=== PATIENT | male | born 1935 | race Two or more races ===

== ENCOUNTER 2017-04-24 00:05 | Observation (INO) | payer MEDICARE ==
[2017-04-24] MEDS ORDERED: NS 0.9% 1000 ML* 1,000 ML IV ONE (01:08)
[2017-04-24] MEDS ORDERED: methylPREDNISolone 125 MG* 2 ML VIAL IV ONE (01:08)
[2017-04-24] MEDS ORDERED: Albuterol/Ipratropium NEB.SOL* Albuterol 2.5 MG/Ipratropium 0.5 MG 3 ML INH ONE (01:11)
[2017-04-24 01:52] LABS: ABS Basophils 0 10^3/ul (0-0.2); ABS Eosinophils 0.1 10^3/ul (0-0.6); ABS Lymphocytes 0.7 10^3/ul (1.0-4.8); ABS Monocytes 0.7 10^3/ul (0-0.8); ABS Neutrophils 5.6 10^3/ul (1.5-7.7); ABS Nucleated RBC 0 10^3/ul; Eosinophil % 1.7 % (0-6); Hematocrit 39 % (42-52); Hemoglobin 12.9 g/dl (14.0-18.0); Lymphocyte % 9.7 % (25-47); Mean Corpuscular HGB Conc 33 g/dl (31-36); Mean Corpuscular Hemoglobin 30 pg (27-31); Mean Corpuscular Volume 90 fL (80-94); Mean Platelet Volume 8 um3 (7.4-10.4); Nucleated Red Blood Cells % 0; Platelet Count 166 10^3/ul (150-450); Red Blood Count 4.35 10^6/ul (4.0-5.4); Red Cell Distribution Width 14 % (10.5-15); White Blood Count 7.2 10^3/ul (3.5-10.8)
[2017-04-24 02:09] LABS: EGFR Non-African American 89.1 (>60)
[2017-04-24] MEDS ORDERED: Levofloxacin 750 MG IVPREMIX(* 750 MG/150 ML BAG IVPB ONE (02:47)
[2017-04-24] MEDS ORDERED: GuaiFENesin DM* 5 ML UDC PO PRN (03:46)
[2017-04-24] MEDS ORDERED: Albuterol 2.5 MG/3 ML NEB.SOL* (0.083%) INH PRN (03:49)
[2017-04-24] MEDS ORDERED: Ondansetron INJ* 2 MG/ML VIAL IV PRN (03:49)
[2017-04-24] MEDS ORDERED: Acetaminophen TAB* 325 MG PO PRN (03:49)
[2017-04-24] MEDS: NS 0.9% 1000 ML* 1,000 ML IV SCH ×2 (05:15→16:02)
--- NOTE | 2017-04-24 06:30 | ED ---
Allen Marques Angela, scribed for Herman High MD on 04/24/17 at 0048 . Shortness of Breath - HPI Summary HPI Summary: This pt is a 81 y/o male presenting to [facility] via EMS c/o SOB. Pt reports he has been coughing and wheezing for a couple of weeks now. Pt states he went to take a shower and after coming out of his shower he felt suddenly SOB, described like his "nose began to plug up." He denies chest pain, fever, sore throat. Pt went to see his PCP yesterday and was diagnosed with bronchitis. He was given a cough suppressant. Pt is currently on prostate medicine and GERD medication. He is a former smoker. - History of Current Complaint Chief Complaint: EDShortnessOfBreath Time Seen by Provider: 04/24/17 00:40 Hx Obtained From: Patient Onset/Duration: Lasting Days, Still Present Timing: Constant Dyspnea At: Rest Associated Signs & Symptoms: Cough (Nonproductive), Wheezing - Allergy/Home Medications Allergies/Adverse Reactions: Allergies Allergy/AdvReac Type Severity Reaction Status Date / Time Codeine Allergy Headache Verified 10/16/16 08:50 Home Medications: Home Medications Benzonatate [Benzonatate 200 MG] 200 mg PO TID PRN 04/24/17 [History Confirmed 04/24/17] Esomeprazole Magnesium [Nexium 24Hr] 20 mg PO DAILY 04/24/17 [History Confirmed 04/24/17] Finasteride [Proscar] 5 mg PO DAILY 04/24/17 [History Confirmed 04/24/17] Multiple Vitamins W/ Minerals [Preservision Areds 2 + Mu] 1 cap PO DAILY [History Confirmed 04/24/17] Phenylephrine 0.5% NASAL* [Ervin-Synephrine 0.5% Nasal*] 1 spray BOTH NARES Q4H PRN 04/24/17 [History Confirmed 04/24/17] PMH/Surg Hx/FS Hx/Imm Hx Endocrine/Hematology History: Denies: Hx Diabetes Cardiovascular History: Denies: Hx Hypertension GI History: Reports: Hx Gastroesophageal Reflux Disease History: Reports: Hx Benign Prostatic Hyperplasia Denies: Hx Dialysis, Hx Renal Disease Infectious Disease History: Denies: Traveled Outside the [place] in Last 30 Days - Family History Known Family History: Positive: Other - Father: [place] - Social History Alcohol Use: None Substance Use Type: Reports: None Smoking Status (MU): Former Smoker Review of Systems Negative: Fever, Chills Negative: Sore Throat Negative: Chest Pain Respiratory: Other - wheezing Positive: Shortness Of Breath, Cough All Other Systems Reviewed And Are Negative: Yes Physical Exam - Summary Physical Exam Summary: Appearance: Well appearing, no pain distress Skin: warm, dry, reflects adequate perfusion Head/face: normal Eyes: EOMI, KEMI ENT: Pharynx is normal. Scant nasal discharge. Neck: supple, non-tender Respiratory: Diffuse wheezing, prolonged expiratory phase. Crackles in the left base. Cardiovascular: tachycardic but regular, pulses symmetrical. Some peripheral edema. Abdomen: non-tender, soft. Soft umbilical hernia. Bowel: present Musculoskeletal: strength/ROM intact. 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 Some peripheral edema. Neuro: normal, sensory motor intact, A&Ox3 Triage Information Reviewed: Yes Vital Signs On Initial Exam: Initial Vitals Temp Pulse Resp BP Pulse Ox 99.3 F 112 20 140/82 97 04/24/17 00:15 04/24/17 00:15 04/24/17 00:15 04/24/17 00:15 04/24/17 00:15 Vital Signs Reviewed: Yes Diagnostics - Vital Signs Vital Signs Temp Pulse Resp BP Pulse Ox 04/24/17 03:30 17 144/84 04/24/17 03:18 19 121/82 04/24/17 03:00 17 04/24/17 02:04 19 04/24/17 01:30 133/72 04/24/17 01:00 98 18 96 04/24/17 00:15 37.4 C 114 20 140/82 97 - Laboratory Lab Results: Lab Results 04/24/17 04/24/17 04/24/17 Range/Units 01:26 01:30 01:30 WBC (3.5-10.8) 10^3/ul RBC (4.0-5.4) 10^6/ul Hgb (14.0-18.0) g/dl Hct (42-52) % MCV (80-94) fL MCH (27-31) pg MCHC (31-36) g/dl RDW (10.5-15) % Plt Count (150-450) 10^3/ul MPV (7.4-10.4) um3 Neut % (Auto) (38-83) % Lymph % (Auto) (25-47) % [place] % (Auto) (1-9) % Eos % (Auto) (0-6) % Baso % (Auto) (0-2) % Absolute Neuts (auto) (1.5-7.7) 10^3/ul Absolute Lymphs (auto) (1.0-4.8) 10^3/ul Absolute Monos (auto) (0-0.8) 10^3/ul Absolute Eos (auto) (0-0.6) 10^3/ul Absolute Basos (auto) (0-0.2) 10^3/ul Absolute Nucleated RBC 10^3/ul Nucleated RBC % Patient Temperature ABG pH (7.35-7.45) ABG pH (Temp Correct) ABG pCO2 (35-45) mmHg ABG pCO2 (Temp Corrct ABG pO2 (80-100) mmHg ABG pO2 (Temp Correct ABG HCO3 (19-31) mmol/L ABG O2 Saturation (95-98) % ABG Base Excess (-2.0-2.0) Respiration Rate O2 Delivery Device Ventilator Type Vent Mode FiO2 Inspiratory Time PEEP Pressure Support Pressure Control EPAP IPAP BiPAP Sodium 139 (133-145) mmol/L Potassium 3.9 (3.5-5.0) mmol/L Chloride 107 (101-111) mmol/L Carbon Dioxide 26 (22-32) mmol/L Anion Gap 6 (2-11) mmol/L BUN 20 (6-24) mg/dL Creatinine 0.83 (0.67-1.17) mg/dL Est GFR ( Amer) 114.6 (>60) Est GFR (Non-Af Amer) 89.1 (>60) BUN/Creatinine Ratio 24.1 H (8-20) Glucose 114 H (70-100) mg/dL Lactic Acid (0.5-2.0) mmol/L Calcium 8.8 (8.6-10.3) mg/dL Total Bilirubin 0.30 (0.2-1.0) mg/dL AST 15 (13-39) U/L ALT 12 (7-52) U/L Alkaline Phosphatase 75 (34-104) U/L Troponin I 0.01 (<0.04) ng/mL C-Reactive Protein 8.81 H (< 5.00) mg/L B-Natriuretic Peptide 24 ( - 100) pg/mL Total Protein 6.2 L (6.4-8.9) g/dL Albumin 3.5 (3.2-5.2) g/dL Globulin 2.7 (2-4) g/dL Albumin/Globulin Ratio 1.3 (1-3) Influenza A (Rapid) Negative (Negative) Influenza B (Rapid) Negative (Negative) 04/24/17 04/24/17 04/24/17 Range/Units 01:30 01:30 02:05 WBC 7.2 (3.5-10.8) 10^3/ul RBC 4.35 (4.0-5.4) 10^6/ul Hgb 12.9 L (14.0-18.0) g/dl Hct 39 L (42-52) % MCV 90 (80-94) fL MCH 30 (27-31) pg MCHC 33 (31-36) g/dl RDW 14 (10.5-15) % Plt Count 166 (150-450) 10^3/ul MPV 8 (7.4-10.4) um3 Neut % (Auto) 78.5 (38-83) % Lymph % (Auto) 9.7 L (25-47) % [place] % (Auto) 9.7 H (1-9) % Eos % (Auto) 1.7 (0-6) % Baso % (Auto) 0.4 (0-2) % Absolute Neuts (auto) 5.6 (1.5-7.7) 10^3/ul Absolute Lymphs (auto) 0.7 L (1.0-4.8) 10^3/ul Absolute Monos (auto) 0.7 (0-0.8) 10^3/ul Absolute Eos (auto) 0.1 (0-0.6) 10^3/ul Absolute Basos (auto) 0 (0-0.2) 10^3/ul Absolute Nucleated RBC 0 10^3/ul Nucleated RBC % 0 Patient Temperature Not Reportable ABG pH 7.40 (7.35-7.45) ABG pH (Temp Correct) Not Reportable ABG pCO2 35 (35-45) mmHg ABG pCO2 (Temp Corrct Not Reportable ABG pO2 114 H (80-100) mmHg ABG pO2 (Temp Correct Not Reportable ABG HCO3 23.0 (19-31) mmol/L ABG O2 Saturation 99.6 H (95-98) % ABG Base Excess -2.5 L (-2.0-2.0) Respiration Rate Not Reportable O2 Delivery Device nasal cannula Ventilator Type Not Reportable Vent Mode Not Reportable FiO2 33 Inspiratory Time Not Reportable PEEP Not Reportable Pressure Support Not Reportable Pressure Control Not Reportable EPAP Not Reportable IPAP Not Reportable BiPAP Not Reportable Sodium (133-145) mmol/L Potassium (3.5-5.0) mmol/L Chloride (101-111) mmol/L Carbon Dioxide (22-32) mmol/L Anion Gap (2-11) mmol/L BUN (6-24) mg/dL Creatinine (0.67-1.17) mg/dL Est GFR ( Amer) (>60) Est GFR (Non-Af Amer) (>60) BUN/Creatinine Ratio (8-20) Glucose (70-100) mg/dL Lactic Acid 1.5 (0.5-2.0) mmol/L Calcium (8.6-10.3) mg/dL Total Bilirubin (0.2-1.0) mg/dL AST (13-39) U/L ALT (7-52) U/L Alkaline Phosphatase (34-104) U/L Troponin I (<0.04) ng/mL C-Reactive Protein (< 5.00) mg/L B-Natriuretic Peptide ( - 100) pg/mL Total Protein (6.4-8.9) g/dL Albumin (3.2-5.2) g/dL Globulin (2-4) g/dL Albumin/Globulin Ratio (1-3) Influenza A (Rapid) (Negative) Influenza B (Rapid) (Negative) Result Diagrams: 04/24/17 01:30 04/24/17 01:30 Lab Statement: Any lab studies that have been ordered have been reviewed, and results considered in the medical decision making process. - Radiology Chest XR Xray Interpretation: Positive (See Comments) - Increased perihilar markings with peribronchial cuffing. Left basilar infiltrate. Radiology Interpretation Completed By: ED Physician - EKG 01:24 Cardiac Rate: Tachycardia EKG Rhythm: Sinus Tachycardia - at [address] Segment: Non-Specific - possibly rate related EKG Interpretation: Normal axis. Right bundle branch block. Re-Evaluation - Re-Evaluation First Eval Re-Evaluation Time: 02:45 Comment: I discussed the XR results with the pt. Pt is feling a little better. He still has a harsh cough and is feeling weak. Pt is tachycardic. Course/Dx - Course Course Of Treatment: Pt with harsh cough, elevated HR and LLL infiltrate. Start IV antibiotics, fluids. Lactate not elevated. Improved min with breathing tx. Admit for further. - Diagnoses Differential Diagnosis/HQI/PQRI: Positive: Bronchitis, COPD Exacerbation, Other - pneumonia, flu Provider Diagnoses: Left lower lobe pneumonia, Sepsis - Physician Notifications Discussed Care of Patient With: Vin Brower Time Discussed With Above Provider: 02:50 Instructed by Provider To: Other - I discussed pt care with Dr. Brower, hospitalist, who has agreed to admit the pt. Discharge - Discharge Plan Condition: Guarded Disposition: ADMITTED TO [facility] documentation as recorded by the Allen hayes Angela accurately reflects the service I personally performed and the decisions made by me, Herman High MD.
--- NOTE | 2017-04-24 07:56 | RAD ---
INDICATION: Cough. Short of breath COMPARISON: None TECHNIQUE: PA and lateral dual-energy views were obtained. FINDINGS: Bones/Soft Tissues: There are no acute bony findings. Cardiomediastinal: The cardiomediastinal silhouette is normal. Lungs: There are no acute infiltrates. There is persistent linear change left lung base probably related to lingular scarring. There is mild hyperinflation. Pleura: There are no pleural effusions. Other: There is a small hiatal hernia with air-fluid level. IMPRESSION: MILD CHRONIC APPEARING LUNG FINDINGS. HIATAL HERNIA . NO ACTIVE DISEASE
[2017-04-24] MEDS: Omeprazole CAP* 20 MG PO SCH (09:01)
[2017-04-24] MEDS: Finasteride TAB* 5 MG PO SCH (09:01)
[2017-04-24] MEDS: Benzonatate CAP* 100 MG PO SCH ×3 (09:01→21:54)
--- NOTE | 2017-04-24 10:16 | PN ---
Subjective Date of Service: 04/24/17 Interval History: Mr. Denney reports he is feeling minimally better but continues to have a harsh cough that leaves him very short of breath and gasping for air. He denies other complaint including chest pain, nausea, or abdominal pain. Objective Active Medications: Acetaminophen (Tylenol Tab*) 650 mg PO Q4H PRN Albuterol (Ventolin 2.5 Mg/3 Ml Neb.Tamia*) 2.5 mg INH Q4H PRN Benzonatate (Tessalon Cap*) 100 mg PO TID IVIS Enoxaparin Sodium (Lovenox(*)) 40 mg SUBCUT Q24H IVIS Finasteride (Proscar Tab*) 5 mg PO DAILY IVIS Guaifenesin/Dextromethorphan (Robitussin Dm*) 10 ml PO Q4H PRN Levofloxacin/Dextrose (Levaquin 750 Mg Ivpremix(*)) 750 mg in 150 mls @ 100 mls /hr IVPB Q24H IVIS Sodium Chloride (Ns 0.9% 1000 Ml*) 1,000 mls @ 125 mls/hr IV PER RATE IVIS Omeprazole (Prilosec Cap*) 20 mg PO DAILY@0600 IVIS Ondansetron HCl (Zofran Inj*) 4 mg IV Q4H PRN Prednisone (Deltasone Tab*) 60 mg PO DAILY [facility] Vital Signs: Temp Pulse Resp BP Pulse Ox 98.8 F 106 20 154/79 98 04/24/17 08:14 04/24/17 08:14 04/24/17 08:14 04/24/17 08:14 04/24/17 08:14 Oxygen Devices in Use Now: None Appearance: Male lying in bed in NAD Eyes: No Scleral Icterus Ears/Nose/Mouth/Throat: Mucous Membranes Moist Neck: Trachea Midline Respiratory: Symmetrical Chest Expansion and Respiratory Effort, - - Diminished in left base Cardiovascular: NL Sounds; No Murmurs; No JVD, No Edema Abdominal: NL Sounds; No Tenderness; No Distention Extremities: No Edema Skin: No Rash or Ulcers Neurological: Alert and Oriented x 3, NL Muscle Strength and Tone Nutrition: Taking PO's Result Diagrams: 04/24/17 01:30 04/24/17 01:30 Additional Lab and Data: . Microbiology and Other Data: . Assess/Plan/Problems-Billing Assessment: Mr. Denney is an 81 yo male with no significant PMH who was admitted on 04/23/17 with pneumonia. - Patient Problems (1) Pneumonia Comment: - Minimal improvement. - Chest xray with left lower lobe pneumonia, not read per radiology, but I agree with Dr. Brower. - Continue levaquin. (2) GERD (gastroesophageal reflux disease) Comment: - Continue omeprazole. (3) DVT prophylaxis Comment: - Lovenox. (4) DNR (do not resuscitate) Comment: Status and Disposition: OBV. Anticipate discharge to home when medically stable.
--- NOTE | 2017-04-24 10:23 | HP ---
CC: Dr. Devries * ADMISSION HISTORY AND PHYSICAL: DATE OF ADMISSION: 04/24/17 PRIMARY CARE PROVIDER: Dr. Devries. HEALTHCARE PROXY: . CODE STATUS: DNR. Discussed with the patient and his . MOLST form completed and placed on the chart. SOURCE OF INFORMATION: History obtained from interview with the patient and his . RELIABILITY: Fair. CHIEF COMPLAINT: Shortness of breath with cough. HISTORY OF PRESENT ILLNESS: This is an 81-year-old man with a past medical history of BPH and GERD as well as a remote history of pneumonia, who has had cough for the last 3 weeks associated with "hard breathing," which is difficult to characterize, but notice it has been more difficult to walk to his car for the last 3 weeks, not associated with fever, chills, night sweats, or shaking rigors. He has had decreased appetite, but no fatigue. Noted that the cough had been worsening over the last 3 to 4 days and again without associated fevers or chills, but was associated with headache, which is chronic for which he takes Excedrin. He presented to Dr. Devries, who diagnosed him with bronchitis, gave him Tessalon Perles to start for his cough; however, he had not yet started taking them. Today, after taking the shower, he had a paroxysm of coughing with worsening shortness of breath, presented to the emergency room. Of note, his son has also had a cough recently and his has recently started to cough for the last 1 or 2 days. The patient additionally notes associated rhinorrhea, but no sore throat or sinus congestion. No other travel or sick contacts. PAST MEDICAL HISTORY: Includes BPH; GERD; history of pneumonia; cataracts bilaterally removed; hernia in 1999, repaired. MEDICATIONS: Include: 1. Finasteride. 2. Nexium. ALLERGIES: To CODEINE, which causes headache. FAMILY HISTORY: Positive for father with stomach cancer, otherwise negative for CAD, hypertension, hyperlipidemia, and diabetes. SOCIAL HISTORY: Alcohol, drinks about 12 beers per week. Tobacco, quit in 1962 , smoked for 5 years, less than 1 pack per day. 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 Denies exposure to toxic chemicals except for the adhesives, which he notes was water based. REVIEW OF SYSTEMS: As per HPI. Otherwise, all other systems negative. PHYSICAL EXAMINATION GENERAL: Stated age, sitting up in bed, coughing persistently throughout the entire exam. Talks comfortably in full sentences. VITAL SIGNS: When seen by this author, 121/82; heart rate is 113; respiratory rate is 16; he is 96% on 3 L nasal cannula; T-max in the emergency room was 99.3. HEENT: Oropharynx is clear. He has moist mucous membranes. Sclerae are anicteric. NECK: He has non-elevated JVD. Has no cervical or supraclavicular lymphadenopathy. LUNGS: His lungs have rales in bilateral bases, worse in the left. He has wheezes throughout, prolonged expiratory phase. HEART: He is tachycardic without murmurs. ABDOMEN: Soft, with mild distention. Positive bowel sounds, nontender to palpation. EXTREMITIES: Warm and well-perfused without clubbing, cyanosis, or edema. NEUROLOGIC: He is alert and oriented x3. His cranial nerves II through XII are intact. He may have a very slight facial droop at the angle of his lip when smiling; however, slight on exam. He has no apparent anxiety, agitation, or depression. DIAGNOSTIC STUDIES/LAB DATA: Labs reviewed, notable for negative influenza. White blood cell count is 7.2, hemoglobin 12.9, MCV of 90, platelets 166. CRP is 8.8. Troponin I is 0.01, lactic acid is 1.5. Blood gas, arterial, pH 7.4, PCO2 35, PO2 114, unclear what FiO2 . Chest x-ray, interpreted by this author, is obscuration of left hemidiaphragm, potentially representing a left basilar consolidation. PA film formal interpretation pending in the morning. ASSESSMENT AND PLAN: This is an 81-year-old gentleman with 3 weeks of cough, worsening over the last 3 to 4 days, now associated with worsening shortness of breath, found with chest x-ray concerning for left lower lobe pneumonia. 1. Cough. Concern for pneumonia especially with increased shortness of breath and new oxygen demand. He is receiving Levaquin in the emergency room. Agree with continuing. Next dose will not be due until 4 a.m. tomorrow. Check Streptococcus pneumoniae, legionella urine antigen as well as sputum for culture. Normal saline at 125 cc per hour for 2 additional liters given tachycardia. Continue Tessalon caps as well as guaifenesin with dextromethorphan for cough suppression, has received methylprednisolone 125 mg in the emergency room on presentation at 1:20 a.m. ____ continue 60 mg of prednisone daily starting 04/25/17 at 9 a.m. secondary to diffuse wheeze and cough. While he does not carry a diagnosis of asthma, this certainly sounds like reactive airway disease, potentially in the setting of viral infection with potential superimposed small pneumonia. 2. Tachycardia in the setting of above, 2 L normal saline in addition to what he received in the emergency room. Attempt for additional comfort and relief from cough with cough suppressants. Unfortunately, he cannot tolerate CODEINE. 3. Benign prostatic hyperplasia. Continue finasteride. 4. Gastroesophageal reflux disease. We will give omeprazole while here. To continue Nexium on discharge. 5. DVT prophylaxis. Lovenox. 6. Code status. DNR as discussed above. [id number]/[facility] #: [id number] MTDD
[2017-04-24] MEDS: Enoxaparin(*) 40 MG/0.4 ML SYR SUBCUT SCH (12:06)
[2017-04-25] MEDS ORDERED: Levofloxacin 750 MG IVPREMIX(* 750 MG/150 ML BAG IVPB SCH (06:00)
[2017-04-25] MEDS: Omeprazole CAP* 20 MG PO SCH (06:04)
[2017-04-25 07:38] VITALS: BP 133/77
[2017-04-25] MEDS: Finasteride TAB* 5 MG PO SCH (08:01)
[2017-04-25] MEDS: Enoxaparin(*) 40 MG/0.4 ML SYR SUBCUT SCH (08:01)
[2017-04-25] MEDS: Benzonatate CAP* 100 MG PO SCH (08:01)
[2017-04-25] MEDS ORDERED: predniSONE TAB* 20 MG PO SCH (09:00)
--- NOTE | 2017-04-25 09:53 | PN ---
Progress Note - Progress Note Date of Service: 04/25/17 Note: Discharge Progress Note Primary diagnosis: left lower lobe pneumonia Secondary diagnoses: GERD BPH h/o inguinal hernia repair umbilical hernia Consultations: none Procedures: none Complications: none Pertinent lab/radiology testing: chest x-ray: chronic changes in L base, no clear infiltrate Microbiology 04/24/17 13:00 Sputum Gram Stain - Final 04/24/17 05:35 Urine Legionella Urinary Antigen - Final 04/24/17 05:35 Urine Streptococcus pneumoniae Ag Screen - Final Negative Legionella Negative S. pneumo Antigen Laboratory Tests 04/24/17 04/24/17 04/24/17 01:26 01:30 01:30 Hgb Hct MCV ABG pH ABG pCO2 ABG pO2 Glucose 114 H Lactic Acid C-Reactive Protein 8.81 H B-Natriuretic Peptide 24 Influenza A (Rapid) Negative Influenza B (Rapid) Negative 04/24/17 04/24/17 04/24/17 01:30 01:30 02:05 Hgb 12.9 L Hct 39 L MCV 90 ABG pH 7.40 ABG pCO2 35 ABG pO2 114 H Glucose Lactic Acid 1.5 C-Reactive Protein B-Natriuretic Peptide Influenza A (Rapid) Influenza B (Rapid) Tests pending on discharge: sputum culture Physical Exam: Selected Entries 04/25/17 03:36 Temperature 36.4 C Pulse Rate 95 Respiratory 18 Rate Blood Pressure 133/77 (mmHg) O2 Sat by Pulse 97 Oximetry Alert, no distress Not requiring O2 Lungs: rales LLL Heart: RRR, no murmur Abdo: soft, tender at umbilical hernia (reducible)
[2017-04-25] MEDS ORDERED: Levofloxacin TAB* 500 MG ONE (11:08)
[2017-04-26] MEDS ORDERED: Levofloxacin TAB* 500 MG PO SCH (06:00)
--- NOTE | 2017-04-26 21:32 | DS ---
CC: Dr. Devries * DISCHARGE SUMMARY: DATE OF ADMISSION: 04/24/17 DATE OF DISCHARGE: 04/25/17 PRIMARY DIAGNOSIS: Left lower lobe pneumonia. SECONDARY DIAGNOSES: 1. Gastroesophageal reflux disease. 2. Benign prostatic hypertrophy. 3. History of inguinal hernia repair. 4. Umbilical hernia present. MEDICATIONS ON DISCHARGE: 1. Levaquin 500 mg p.o. daily for 5 days. 2. Benzonatate 200 mg p.o. t.i.d. p.r.n. cough. 3. Nexium 20 mg p.o. daily. 4. Finasteride 5 mg p.o. daily. 5. Guaifenesin DM 10 mg p.o. q.4 hours p.r.n. cough. 6. Multivitamin 1 tab p.o. daily. HOSPITAL COURSE: The patient was admitted with severe coughing. He did not have a history of COPD or asthma. Chest x-ray showed chronic changes in left base. No clear infiltrate. However, physical exam shows rales in the left base and the patient was clinically diagnosed with pneumonia. His urine legionella antigen and urine pneumococcal antigen were negative. Sputum Gram stain was negative. Sputum culture is pending. The patient was treated empirically with IV Levaquin and responded well to this. The patient after admission was ready for discharge with ambulation to the bathroom without dyspnea, tolerating food well, cough is more manageable. Other pertinent tests during the hospital would show a blood gas with pH 7.4, pCO2 of 35, pO2 of 114. His lactic acid was 1.5. Influenza A and B were negative. C-reactive protein was 8.81. DISPOSITION: Home. ACTIVITY: As tolerated. DIET: Regular. FOLLOWUP: He should follow up with Dr. Devries within 1 week. [id number]/[facility] [place] #: [id number] [facility] CENTERAlexandra
== END 2017-04-25 11:10 | disposition home or self-care (01) ==
LOC: ED 00:05 → MEDTELE 03:49
PROVIDERS: ADMIT Internal Medicine; ATTEND Internal Medicine
DX: J18.9 Pneumonia, unspecified organism (principal); K21.9 Gastro-esophageal reflux disease without esophagitis; R05 Cough; R06.2 Wheezing; N40.1 Benign prostatic hyperplasia with lower urinary tract symptoms; Z98.890 Other specified postprocedural states; K42.9 Umbilical hernia without obstruction or gangrene
CPT/HCPCS: 36415; 36600; 71046; 80053; 82803; 83605; 83880; 84484; 85025; 86140; 87040; 87070; 87205; 87502; 87899; 93005; 94640; 96361; 96374; 99284; A9270-GY; G0378; J1650; J2930; J7512

== ENCOUNTER 2019-03-03 21:41 | Inpatient (IN) | payer MEDICARE ==
--- OUTSIDE RECORDS SUMMARY | 2019-03-03 21:58 | XMS REPORT | Continuity of Care Document ---
:1935 External Reference #:[id number] Author Name Ricci Shukla M.D. Address [address] [place] [address] Care Team Providers Name Role Phone Abdulkadir Bedoya M.D. - Urology Care Team Information Business Education Teacher [phone] Kennedy Burkett - Nurse Practitioner Care Team Information Business Education Teacher Problems Active Problems Provider Date Benign prostatic hyperplasia Ricci Shukla M.D. Onset: 10/23/2014 Gastroesophageal reflux disease Ricci Shukla M.D. Onset: 10/23/2014 Ocular hypertension Ricci Shukla M.D. Onset: 10/23/2014 Nonexudative age-related macular degeneration Ricci Shukla M.D. Onset: Pseudophakia Ricci Shukla M.D. Onset: 10/23/2014 Primary open-angle glaucoma, mild stage Ricci Shukla M.D. Onset: 2015 Bilateral primary open angle glaucoma Ricci Shukla M.D. 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 Onset: 06/19 degeneration Tear film insufficiency Ricci Shukla M.D. Onset: 09/11/2017 Presence of intraocular lens Ricci Shukla M.D. Onset: 01/31/2019 Parkinson's disease iRcci Shukla M.D. Onset: 01/31/2019 Social History Type Date Description Comments Sex Unknown ETOH Use Occasionally consumes alcohol Tobacco Use Start: Unknown Patient has never smoked Smoking Status Reviewed: 01/31/19 Patient has never smoked Allergies, Adverse Reactions, Alerts Active Allergies Reaction Severity Comments Date Codeine 12/18/2015 Medications Active Medications SIG Qnty Indications Ordering Provider Date Latanoprost instill 1 drop 10units H35.31 Kamlesh Peacock, 01/26/2015 0.005% in both eyes M.D. Solution every night Preservision Areds 2 1 cap by mouth Ricci Shukla, 10/22/2014 twice a day M.D. Areds 2 Capsules Finasteride Vorha, Abdulkadir 5mg Tablets M.D. Centrum Silver Unknown Tablets Nexium Unknown 20mg Capsules DR [place]ksdale Unknown 450mg Capsules Rivastigmine Tartrate bid Unknown 1.5mg Capsules Carbidopa-Levodopa Erasmo Glasgow NP 25-100mg Tablets Immunizations Description No Information Available Vital Signs Date Vital Result Comment 05/07/2015 2:48pm BP Systolic 134 mmHg BP Diastolic 86 mmHg Heart Rate 86 /min Respiratory Rate 16 /min 04/30/2015 3:16pm BP Systolic 142 mmHg BP Diastolic 88 mmHg Heart Rate 85 /min Respiratory Rate 16 /min Results Description No Information Available Procedures Description No Information Available Medical Devices Description No Information Available Encounters Description No Information Available Assessments Date Code Description Provider 01/31/2019 H40.1131 Primary open-angle glaucoma, bilateral, Ricci Shukla M.D. mild stage 01/31/2019 H35.3131 Nonexudative age-related macular Ricci Shukla M.D. degeneration, bilateral, ea 01/31/2019 Z96.1 Presence of intraocular lens Ricci Shukla M.D. 01/31/2019 G20 Parkinson's disease Ricci Shukla M.D. Plan of Treatment 01/31/2019 - Ricci Shukla M.D.H40.1131 Primary open-angle glaucoma, bilateral, mild stageComments:Smoking can increase the risk of developing or worsening any eye related disease, as well as affect your overall health. If you are a smoker, we strongly recommend that you quit.If you are not a smoker, we strongly recommend that you do not start. Your glaucoma is stable at this time.Your eye pressure is within an acceptable range, and your testing does not show any further deterioration at this time. Please continue your treatment.Follow up:6 Month Follow Up IOP Check At your next visit, we are not planning to dilate your eyes. However, if you have any changes in your vision or new symptoms, there are certain situations that require us to dilate your eyes. If Dr. Shukla requests any additional testing, that may require extra time. If you have any questions before your next appointment, please call our office at .[phone] Nonexudative age-related macular degeneration , bilateral, eaComments:You have Macular Degeneration. Check your Amsler Grid, with each eye separately, and take the AREDS II formula vitamins. If you notice any changes in your vision, please call the office and schedule anappointment to see any of the doctors here.Z96.1 Presence of intraocular lensComments:The artificial lens implants in both eyes appear to be stable at this time.G20 Parkinson's disease Functional Status Description No Information Available Mental Status Description No Information Available Referrals Description No Information Available
--- OUTSIDE RECORDS SUMMARY | 2019-03-03 21:58 | XMS REPORT | Continuity of Care Document ---
:1935 External Reference #:[id number] Author Name Quinten Glasgow N.P. (transmitted by agent of provider Josey Lam) Address [address] [place] [address], [place] [address] Care Team Providers Name Role Phone Kennedy Burkett ASSOCIATE PROFESSOR OF ENGINEERING - Internal Medicine Care Team Information Facility Environmental Technician Problems Active Problems Provider Date Amnesia Jose Fraire M.D. Onset: 04/29/2018 Abnormal involuntary movement Jose Fraire M.D. Onset: 04/29/2018 Benign prostatic hypertrophy without outflow Johan Devries M.D. Onset: obstruction Pure hypercholesterolemia Johan Devries M.D. Onset: 09/18/2015 Impaired fasting glycaemia Johan Devries M.D. Onset: 09/18/2015 Gastroesophageal reflux disease Johan Devries M.D. Onset: 09/18/2015 Social History Type Date Description Comments Sex Male ETOH Use Denies alcohol use Tobacco Use Start: Unknown End: Patient is a former Quit 1962; 1 Unknown smoker pack/week max, began age 18 Smoking Status Reviewed: 01/06/19 Patient is a former Quit 1963; 1 smoker pack/week max, began age 18 Exercise Exercises sporadically Type/Frequency Allergies, Adverse Reactions, Alerts Active Allergies Reaction Severity Comments Date Codeine headache 09/13/2014 Medications Active Medications SIG Qnty Indications Ordering Provider Date Carbidopa-Levodopa 1/2 pill three 90tabs Quinten Glasgow, 12/15/2018 times a day, 30 N.P. 25-100mg Tablets min prior to meals Rivastigmine Tartrate 1 capsule at bed 30caps R41.3 Quniten Glasgow, 11/05 time N.P. 4.5mg Capsules Rivastigmine Tartrate take 1 by mouth 30caps R25.1 Quinten Glasgow, 2018 in the morning N.P. 3mg Capsules Finasteride 1 by mouth every Unknown 5mg Tablets day Nexium uses prn Unknown 2.5mg Packet Preservision Areds 3 capsules once a Unknown day w/food Capsules Latanoprost 1 drop in both Unknown 0.005% eyes daily Solution Excedrin Migraine 2 tab by mouth Unknown daily as needed [id number] Tablets Immunizations CPT Code Status Date Vaccine Lot # [id number] Given 12/24/2018 Influenza Virus Vaccine, Quadrivalent, Split, Preservative Free 44851 Given 02/05/2018 Pneumococcal Conjugate Vaccine 13 Valent For Intramuscular Use 79542 Given 01/14/2018 Influenza Virus Vaccine, Quadrivalent, Split, Preservative Free 24597 Given 01/18/2016 Fluzone High Dose 77433 Given 09/13/2014 Pneumococcal Conjugate Vaccine 13 Valent For [id number] Intramuscular Use 64088 Given 02/13/2014 Influenza Virus 3Yrs & Over 34636 Given 12/10/2012 Influenza Virus 3Yrs & Over 64262 Given 10/23/2011 Zoster (Zostavax) 30706 Given 10/23/2011 Tdap - Tetanus/Diptheria/Acellular Pertussis 76693 Given 03/03/2009 Influenza Virus 3Yrs & Over 28548 Given 02/12/2008 Influenza Virus 3Yrs & Over 51229 Given 02/09/2007 Influenza Virus 3Yrs & Over 25628 Given 01/29/2006 Influenza Virus 3Yrs & Over 83263 Given 02/14/2002 Influenza Virus 3Yrs & Over Vital Signs Date Vital Result Comment 01/06/2019 10:13am Height 61 inches 5'1" Weight 159.00 lb Heart Rate 84 /min BP Systolic 136 mmHg BP Diastolic 84 mmHg BMI (Body Mass Index) 30.0 kg/m2 11/05/2018 10:21am Height 61 inches 5'1" Weight 159.00 lb Heart Rate 90 /min BP Systolic 112 mmHg BP Diastolic 82 mmHg BMI (Body Mass Index) 30.0 kg/m2 Results Description No Information Available Procedures Date Code Description Status 04/22/2007 56187437 Colonoscopy Completed Medical Devices Description No Information Available Encounters Type Date Location Provider Dx Diagnosis Office Visit 11/05/2018 [facility] Quinten Pee, R25.1 Tremor, unspecified 10:30a [facility] N.P. R41.3 Other amnesia R26.89 Other abnormalities of gait and mobility Office Visit 09/10/2018 [facility] Jose Fraire, R25.1 Tremor, 12:00p Neurologic M.D. unspecified [facility] R41.3 Other amnesia R26.89 Other abnormalities of gait and mobility Assessments Date Code Description Provider 01/06/2019 R41.3 Other amnesia Quinten Glasgow, N.P. 01/06/2019 R26.89 Other abnormalities of gait and mobility Quinten Glasgow, N.P. 01/06/2019 G20 Parkinson's disease Quinten Glasgow, N.P. 11/05/2018 R25.1 Tremor, unspecified Quinten Glasgow, N.P. 11/05/2018 R41.3 Other amnesia Quinten Glasgow, N.P. 11/05/2018 R26.89 Other abnormalities of gait and mobility Quinten Glasgow, N.P. 09/10/2018 R25.1 Tremor, unspecified Jose Fraire M.D. 09/10/2018 R41.3 Other amnesia Jose Fraire M.D. 09/10/2018 R26.89 Other abnormalities of gait and mobility Jose Fraire M.D. Plan of Treatment Future Appointment(s):02/14/2019 10:00 am - Quinten Glasgow, N.P. at [facility]01/06/2019 - Quinten Glasgow, N.P.R41.3 Other mztimuiI20.89 Other abnormalities of gait and omglpniiY16 Parkinson's diseaseFollow up:4 weeksRecommendations:check your blood pressure sitting and standing check you blood pressure when your lightheaded take the carbidopa levodopa on a empty stomach, and take it at consistent times during the day Functional Status Description No Information Available Mental Status Description No Information Available Referrals Description No Information Available
--- OUTSIDE RECORDS SUMMARY | 2019-03-03 21:58 | XMS REPORT | Continuity of Care Document ---
:1935 External Reference #:[id number] Author Name Quinten Glasgow N.P. (transmitted by agent of provider Riya Pruitt) Address [address] [place] [address], [place] [address] Care Team Providers Name Role Phone Kennedy Burkett NP - Internal Medicine Care Team Information Veterinary X Ray Operator Problems Active Problems Provider Date Gastroesophageal reflux disease Johan Devries M.D. Onset: 09/18/2015 Impaired fasting glycaemia Johan Devries M.D. Onset: 09/18/2015 Pure hypercholesterolemia Johan Devries M.D. Onset: 09/18/2015 Benign prostatic hypertrophy without outflow Johan Devries M.D. Onset: obstruction Abnormal involuntary movement Jose Fraire M.D. Onset: 04/29/2018 Amnesia Jose Fraire M.D. Onset: 04/29/2018 Social History Type Date Description Comments Sex Male ETOH Use Denies alcohol use Tobacco Use Start: Unknown End: Patient is a former Quit 1962; 1 Unknown smoker pack/week max, began age 18 Recreational Drug Use Denies Drug Use Smoking Status Reviewed: 02/14/19 Patient is a former Quit 1963; 1 smoker pack/week max, began age 18 Exercise Type/Frequency Exercises sporadically Allergies, Adverse Reactions, Alerts Active Allergies Reaction Severity Comments Date Codeine headache 09/13/2014 Medications Active Medications SIG Qnty Indications Ordering Date Provider Carbidopa-Levodopa 1 tablet in the am 60tabs R25.1 Quinten Glasgow, 2018 1/2 tab in N.P. 25-100mg Tablets afternoon 1/2 tab in the evening Rivastigmine Tartrate 1 capsule at bed 30caps R41.3 Quinten Glasgow, 11/05 time N.P. 4.5mg Capsules Rivastigmine Tartrate take 1 by mouth in 30caps R25.1 Quinten Glasgow, the morning N.P. 3mg Capsules Finasteride 1 by mouth every Unknown 5mg Tablets day Preservision Areds 3 capsules once a Unknown day w/food Capsules Latanoprost 1 drop in both Unknown 0.005% eyes daily Solution Excedrin Migraine 2 tab by mouth Unknown daily as needed [id number] Tablets History Medications Carbidopa-Levodopa 1 pill three 90tabs Quinten Glasgow, 12/15/2018 - 25-100mg Tablets times a day, N.P. 02/14/2019 30 min prior to meals Immunizations CPT Code Status Date Vaccine Lot # [id number] Given 12/24/2018 Influenza Virus Vaccine, Quadrivalent, Split, Preservative Free 15150 Given 02/05/2018 Pneumococcal Conjugate Vaccine 13 Valent For Intramuscular Use 28985 Given 01/14/2018 Influenza Virus Vaccine, Quadrivalent, Split, Preservative Free 83879 Given 01/18/2016 Fluzone High Dose 83540 Given 09/13/2014 Pneumococcal Conjugate Vaccine 13 Valent For [id number] Intramuscular Use 49502 Given 02/13/2014 Influenza Virus 3Yrs & Over 05290 Given 12/10/2012 Influenza Virus 3Yrs & Over 44029 Given 10/23/2011 Zoster (Zostavax) 25530 Given 10/23/2011 Tdap - Tetanus/Diptheria/Acellular Pertussis 31857 Given 03/03/2009 Influenza Virus 3Yrs & Over 15786 Given 02/12/2008 Influenza Virus 3Yrs & Over 75634 Given 02/09/2007 Influenza Virus 3Yrs & Over 35338 Given 01/29/2006 Influenza Virus 3Yrs & Over 02370 Given 02/14/2002 Influenza Virus 3Yrs & Over Vital Signs Date Vital Result Comment 02/14/2019 10:03am Height 61 inches 5'1" Weight 163.00 lb Heart Rate 112 /min BP Systolic 112 mmHg BP Diastolic 82 mmHg BMI (Body Mass Index) 30.8 kg/m2 01/06/2019 10:13am Height 61 inches 5'1" Weight 159.00 lb Heart Rate 84 /min BP Systolic 136 mmHg BP Diastolic 84 mmHg BMI (Body Mass Index) 30.0 kg/m2 Results Description No Information Available Procedures Date Code Description Status 04/22/2007 [id number] Colonoscopy Completed Medical Devices Description No Information Available Encounters Type Date Location Provider Dx Diagnosis Office Visit 01/06/2019 [facility] Quinten Glasgow, R41.3 Other amnesia 10:30a [facility] R26.89 Other abnormalities of gait and mobility R42 Dizziness and giddiness R25.1 Tremor, unspecified Office Visit 11/05/2018 10:30a [facility] Quinten R25.1 Tremor, [facility] Pee, N.P. unspecified R41.3 Other amnesia R26.89 Other abnormalities of gait and mobility Office Visit 09/10/2018 Deon Fraire R25.1 Tremor, 12:00p Neurologic MManuel unspecified [facility] R41.3 Other amnesia R26.89 Other abnormalities of gait and mobility Assessments Date Code Description Provider 02/14/2019 R41.3 Other amnesia Quinten Glasgow, N.P. 02/14/2019 R26.89 Other abnormalities of gait and mobility Quinten Glasgow, N.P. 02/14/2019 R25.1 Tremor, unspecified Quinten Glasgow, N.P. 01/06/2019 R41.3 Other amnesia Quinten Glasgow, N.P. 01/06/2019 R26.89 Other abnormalities of gait and mobility Quinten Glasgow, N.P. 01/06/2019 R42 Dizziness and giddiness Quinten Glasgow, N.P. 01/06/2019 R25.1 Tremor, unspecified Quinten Glasgow, N.P. 11/05/2018 R25.1 Tremor, unspecified Quinten Glasgow, N.P. 11/05/2018 R41.3 Other amnesia Quinten Glasgow, N.P. 11/05/2018 R26.89 Other abnormalities of gait and mobility Quinten Glasgow, N.P. 09/10/2018 R25.1 Tremor, unspecified Jose Fraire M.D. 09/10/2018 R41.3 Other amnesia Jose Fraire M.D. 09/10/2018 R26.89 Other abnormalities of gait and mobility Jose Fraire M.D. Plan of Treatment Future Appointment(s):05/30/2019 10:15 am - [facility]02/14/2019 - Quinten Glasgow N.P.R41.3 Other amnesiaFollow up:8 wofvbV27.89 Other abnormalities of gait and oidmrtwgU48.1 Tremor, unspecifiedNew Medication:Carbidopa-Levodopa 25-100 mg - 1 tablet in the am 1/2 tab in afternoon 1/2 tab in the evening Functional Status Description No Information Available Mental Status Description No Information Available Referrals Description No Information Available
--- NOTE | 2019-03-03 22:10 | ED ---
Lower Extremity - HPI Summary HPI Summary: 84-year-old male with significant past medical history of Parkinson's with dementia presents to the emergency department today after falling from standing due to slipping on ice at 2:00 PM and hurting his right hip. She states he has 5 out of 10 pain which is worse with walking and bearing weight. He states he is able to ambulate however it is very difficult. he denies syncope or loss of consciousness as a cause of fall. he denies fever, chest pain, abdominal pain, shortness of breath, rash, and urination. he denies any frequent urination yesterday. - History of Current Complaint Chief Complaint: EDHipPelvisInjury Stated Complaint: FALL INJ PER EMS Time Seen by Provider: 03/03/19 21:57 Hx Obtained From: Patient, Family/Halal Meat Packer - , daughter at the bed side Mechanism Of Injury: Fall From A Standing Position Onset of Pain: Hours Onset/Duration: Hours Severity Initially: Moderate Severity Currently: Mild Pain Intensity: 5 Pain Scale Used: 0-10 Numeric Timing: Constant Location: Is Discrete @ - right hip Character Of Pain: Aching Associated Signs And Symptoms: Negative: Swelling, Redness, Bruising, Fever Aggravating Factor(s): Standing, Ambulation Alleviating Factor(s): Rest Able to Bear Weight: No - Allergies/Home Medications Allergies/Adverse Reactions: Allergies Allergy/AdvReac Type Severity Reaction Status Date / Time codeine Allergy Headache Verified 03/04/19 00:21 Home Medications: Home Medications Carbidopa/Levodopa ER 25/100 [Carbidopa-Levo ER 25-100 Tab] 1 tab PO DAILY 03/03 [History Confirmed 03/03/19] Rivastigmine CAP(NF) [Exelon (NF)] 3 mg PO DAILY 03/03/19 [History Confirmed 08/15] Rivastigmine Tartrate [Rivastigmine] 4.5 mg PO DAILY 03/03/19 [History Confirmed 03/03/19] PMH/Surg Hx/FS Hx/Imm Hx Endocrine/Hematology History: Denies: Hx Diabetes Cardiovascular History: Denies: Hx Hypertension, Hx Pacemaker/ICD Respiratory History: Reports: Hx Pneumonia GI History: Reports: Hx Gastroesophageal Reflux Disease History: Reports: Hx Benign Prostatic Hyperplasia Denies: Hx Dialysis, Hx Renal Disease Sensory History: Reports: Hx Cataracts - Removed, Hx Contacts or Glasses Denies: Hx Hearing Aid Opthamlomology History: Reports: Hx Cataracts - Removed, Hx Contacts or Glasses Neurological History: Reports: Hx Migraine Psychiatric History: Denies: Hx Panic Disorder - Surgical History Surgery Procedure, Year, and Place: Cataracts removed,. Hernia repair. VASECTOMY Infectious Disease History: No Infectious Disease History: Denies: Traveled Outside the [place] in Last 30 Days - Family History Known Family History: Positive: Other - Father: [place] - Social History Alcohol Use: None Substance Use Type: Reports: None Smoking Status (MU): Former Smoker Review of Systems Constitutional: Negative Eyes: Negative ENT: Negative Cardiovascular: Negative Respiratory: Negative Gastrointestinal: Negative Genitourinary: Negative Positive: Arthralgia Skin: Negative Neurological: Negative Psychological: Normal All Other Systems Reviewed And Are Negative: Yes Physical Exam - Summary Physical Exam Summary: Edema with visualization. Right lower extremity is slightly shorter compared to the left. Patient has exquisite tenderness with palpation of the pelvis on the right side. Patient has extreme pain with movement of the right lower extremity. Dorsalis pedis pulse 2+ and he is neurovascularly intact in the right lower extremity. Triage Information Reviewed: Yes Vital Signs On Initial Exam: Initial Vitals Pulse Resp BP Pulse Ox 102 20 125/87 93 03/03/19 21:40 03/03/19 21:40 03/03/19 21:40 03/03/19 21:40 Vital Signs Reviewed: Yes Appearance: Positive: Well-Appearing, No Pain Distress, Well-Nourished Skin: Positive: Warm, Skin Color Reflects Adequate Perfusion Eyes: Positive: EOMI, KEMI ENT: Positive: Hearing grossly normal Respiratory/Lung Sounds: Positive: Clear to Auscultation, Breath Sounds Present Cardiovascular: Positive: RRR, S1, S2 Abdomen Description: Positive: Nontender, Soft Bowel Sounds: Positive: Present Musculoskeletal: Positive: Strength/ROM Intact Neurological: Positive: Sensory/Motor Intact, Alert, Oriented to Person Place, Time, Normal Gait, Facial Symmetry, Speech Normal Psychiatric: Positive: Normal AVPU Assessment: Alert Procedures - Sedation Patient Received Moderate/Deep Sedation with Procedure: No Diagnostics - Vital Signs Vital Signs Temp Pulse Resp BP Pulse Ox 03/03/19 21:42 97.3 F 99 16 125/87 94 03/03/19 21:40 102 20 125/87 93 - Laboratory Result Diagrams: 03/04/19 02:11 Lab Statement: Any lab studies that have been ordered have been reviewed, and results considered in the medical decision making process. Lower Extremity Course/Dx - Course Course Of Treatment: Patient was evaluated in the emergency department for right hip pain. She was seen and examined his vitals are stable. CT without contrast was ordered of the pelvis which revealed subcapital impaction fracture of the right femoral neck. No significant angulation. No significant hematoma. Orthopedics, Dr. Garcia was consulted at 1156 who suggested admission to the hospital through medical service. Hospitalist was consulted at 1158 for admission of the patient for evaluation in the morning by orthopedics. Patient was given 2 mg of morphine and 4 mg of Zofran for his pain. Admission was handled by hospitalist . Patient and family agreed with plan. - Diagnoses Differential Diagnosis/HQI/PQRI: Positive: Contusion, Fracture (Closed), Sprain , Strain Provider Diagnoses: Fracture of femoral neck, right - Physician Notifications Discussed Care Of Patient With: Carmen Garcia - admission for further evaluation in the morning. Admission to be handled by medical team. Time Discussed With Above Provider: 11:56 Instructed by Provider To: Admit As Inpatient Discharge ED - Sign-Out/Discharge Documenting (check all that apply): Patient Departure - Discharge Plan Condition: Stable Disposition: ADMITTED TO [facility] Referrals: Kennedy Burkett BALLISTIC TECHNICIAN [Primary Care Provider] - - Billing Disposition and Condition Condition: STABLE Disposition: Admitted to [facility] Consult Consult: Dr. Stockton with medical team was consulted for admission of the patient. Admission orders handled by hospitalist team.
[2019-03-03] MEDS ORDERED: Morphine INJ* 4 MG/ML 1 ML SYRINGE (NEW SYRINGE VERSION) IV PRN (23:54)
[2019-03-04] MEDS ORDERED: Ondansetron INJ* 2 MG/ML VIAL IV ONE (00:20)
[2019-03-04] MEDS: Morphine INJ* 2 MG/ML 1 ML SYRINGE (TWO MG - NEW SYRINGE VERSION) IV PRN ×4 (00:32→09:04)
[2019-03-04 01:59] LABS: Urine Appearance Clear; Urine Bilirubin Negative (Negative); Urine Blood Negative (Negative); Urine Color Yellow; Urine Glucose Negative (Negative); Urine Ketones Trace (Negative); Urine Nitrite Negative (Negative); Urine Protein Negative (Negative); Urine Specific Gravity 1.023 (1.010-1.030); Urine Urobilinogen Negative (Negative)
[2019-03-04 02:24] LABS: ABS Basophils 0.1 10^3/ul (0-0.2); ABS Eosinophils 0.3 10^3/ul (0-0.6); ABS Lymphocytes 0.8 10^3/ul (1.0-4.8); ABS Monocytes 0.8 10^3/ul (0-0.8); Eosinophil % 2.8 %; Hematocrit 40 % (42-52); Hemoglobin 13.4 g/dL (14.0-18.0); Lymphocyte % 6.6 %; Mean Corpuscular HGB Conc 34 g/dL (31-36); Mean Corpuscular Hemoglobin 30 pg (27-31); Mean Corpuscular Volume 90 fL (80-94); Mean Platelet Volume 8.4 fL (7.4-10.4); Platelet Count 154 10^3/uL (150-450); Red Blood Count 4.44 10^6 /uL (4.18-5.48); Red Cell Distribution Width 14 % (10-15); White Blood Count 12.1 10^3/uL (3.5-10.8)
[2019-03-04 02:31] LABS: Activated Partial Thrombo Time 33.1 seconds (26.0-38.0); INR 1.07 (0.82-1.09)
[2019-03-04 02:39] LABS: BUN/Creatinine Ratio 23.2 (8-20); Calcium 8.7 mg/dL (8.6-10.3); EGFR African American 108.8 (>60); EGFR Non-African American 89.9 (>60); Potassium 3.9 mmol/L (3.5-5.0)
--- NOTE | 2019-03-04 04:33 | HP ---
CC: Kennedy Burkett NP * ADMISSION HISTORY AND PHYSICAL: DATE OF ADMISSION: 03/04/19 PRIMARY CARE PHYSICIAN: Kennedy Burkett NP. NEUROLOGIST: Jose Fraire MD. CHIEF COMPLAINT: Fall with right hip pain. HISTORY OF PRESENT ILLNESS: This is an 83-year-old gentleman with past medical history of benign prostatic hypertrophy, gastroesophageal reflux disease, recently diagnosed Parkinson's with some early dementia, who was in his usual state of health up until this afternoon when he left the house and got near his 's car, he states that he stepped his foot with the other foot and fell. The patient's thinks that his leg might have either sprained or gave out, but the patient never complained of any dizziness when he fell outside. Some bystanders helped the patient go back into the house and the patient who normally ambulates without any assistive devices, started using his cane and help of his to ambulate around, but by evening, the patient was having severe pain to the point that he was unable to do anything. His finally assisted him to sit down in his chair and called the ambulance. The patient was having severe pain in the right hip. The stated that there was never any loss of consciousness during the fall that he had and no head trauma. The patient denied any chest pain, any shortness of breath, any urinary burning sensation or pain with urination, any abdominal pain, nausea, or vomiting. The patient denied any other numbness, tingling, or vision disturbances. On re- questioning him, the patient did state that he, once in a while, feels dizzy, but he did not feel dizzy during the fall. PAST MEDICAL HISTORY: As mentioned: 1. Recently diagnosed Parkinson dementia and sees Dr. Fraire. 2. Previous history of benign prostatic hypertrophy. 3. Gastroesophageal reflux disease. 4. Previous admission in March 2017 for pneumonia. PAST SURGICAL HISTORY: Includes: 1. Bilateral cataract surgery. 2. Hernia repair. HOME MEDICATIONS: The patient is on: 1. Proscar 5 mg oral daily. 2. Rivastigmine 3 mg in the morning and 4.5 at night. 3. Sinemet extended release 25/100 mg oral daily. ALLERGIES: The patient is allergic to CODEINE, which causes headache. FAMILY HISTORY: Father had stomach cancer, otherwise negative for any coronary artery disease, hypertension, dyslipidemia, or diabetes. SOCIAL HISTORY: He used to drink about 12 beers a week but has cut down quite drastically, quit smoking in 1962, smoked for 5 years and less than a pack a day. He is retired. 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 He states that he was exposed to adhesive , but otherwise no other chemical exposures. His previous MOLST form from 2018 does indicate DNR. On re-questioning him, he still prefers to be DNR with his Yeimi being the surrogate decision maker, and he also did not want to be intubated, but after explaining the patient that he may need to be intubated for surgical correction of his hip, he stated that he was okay with intubation for any surgical procedure on a temporary basis, but did not want to be on a machine. REVIEW OF SYSTEMS: A 14-point review of systems did not reveal any new information other than what is mentioned in the HPI. PHYSICAL EXAMINATION GENERAL: The patient is awake, alert, oriented x3, did not appear to be in any acute respiratory distress. VITAL SIGNS: BP was noted to be 116/73, heart rate 97, respiration rate 17, saturating 93% on room air, temperature was recorded at 97.3. HEAD AND NECK: Atraumatic, normocephalic. Bilateral pupils were reactive with postsurgical changes. Oral mucosa was dry. Neck: Supple. No jugular venous distention. LUNGS: Clear to auscultation bilaterally. No wheezing, rhonchi, or rales. HEART: S1, S2. Regular rate and rhythm. ABDOMEN: Soft, nontender, nondistended. EXTREMITIES: The patient did have severe tenderness on the right hip area, but no other edema was noted. DIAGNOSTIC STUDIES/LAB DATA: CBC was showing minimally elevated white count of 12.1, hemoglobin and hematocrit show mild anemia, platelet count was within normal limits. Coagulation profile shows INR of 1.07 and APTT of 33.1. Basic metabolic panel was unremarkable except for minimally elevated random glucose at 124. Urinalysis was positive for trace ketones, but otherwise negative for any nitrite or leuk esterase. CT abdomen and pelvis showed a subcapital impaction fracture of the right femoral neck, no significant angulation, no significant hematoma. EKG shows sinus tachycardia with multiform ventricular premature complexes, but otherwise unremarkable. When compared to his older EKG from 2018, overall waveforms seem to be unchanged. He still had the bundle-branch blocking in the previous EKG. IMPRESSION: This is an 83-year-old gentleman with a history of Parkinson's, some mild dementia, and benign prostatic hypertrophy, came in due to accidental fall without any head trauma or loss of consciousness, but noted to have a subcapital impacted right femoral neck fracture. ASSESSMENT AND PLAN: 1. Right femoral neck fracture. We will keep the patient n.p.o. and hold his home medications and consult Dr. Garcia to see if the patient would benefit from any surgical correction. He otherwise does not have any cardiac risk factor and the patient agreed to have temporary intubation for the surgical procedure and the MOLST form was updated with this particular request. 2. History of Parkinson disease. We will hold his home medication. 3. History of benign prostatic hypertrophy. We will hold his home medication. 4. DVT prophylaxis: Currently not starting any SCDs due to his fracture and pain and we will hold any anticoagulation medication until after the surgery. 5. Code status: The patient is DNR and the MOLST form was updated with his wishes of DNR/DNI with the exception that was already mentioned previously. [id number]/[facility] #: [id number] KOBI
--- NOTE | 2019-03-04 10:16 | CONS ---
ORTHOPEDIC CONSULTATION REPORT: DATE OF CONSULT: 03/04/19 Thank you for this orthopedic consultation. CHIEF COMPLAINT: Right hip pain. HISTORY OF PRESENT ILLNESS: Mr. Denney is an 83-year-old gentleman with Parkinson's disease and dementia, who had a fall yesterday when getting in his 's car. He had immediate 4/10 pain in the right hip. Ambulation and standing became quite difficult and he was brought to [facility] by ambulance. The patient was diagnosed on CT scan with a right femoral neck fracture with minimal displacement. He reports any movement of the hip increases his pain, and immobilization and bedrest decreases his pain. His is not at the bedside today. I am getting most of his history from past reports. PAST MEDICAL HISTORY: Parkinson's disease, dementia, BPH, GERD, history of pneumonia in 2018. PAST SURGICAL HISTORY: Cataract surgery excision bilaterally and hernia repair. HOME MEDICATIONS: 1. Proscar 5 mg p.o. daily. 2. Rivastigmine 3 mg q.a.m. and 4.5 mg q.p.m. 3. Sinemet 25/100 mg p.o. daily. ALLERGIES: CODEINE, causes headache. FAMILY HISTORY: Paternal cancer. SOCIAL HISTORY: The patient lives with his . He is retired. No tobacco or recreational drug use. He used to have 12 beers a week, but has cut down drastically. Recently began ambulating with a rolling walker. His , Yeimi, is his surrogate decision maker. REVIEW OF SYSTEMS: Fourteen systems were reviewed with the patient today. He reports the recent fall, right hip pain. He reports memory loss. Negative for fevers, chills, chest pain or shortness of breath. Otherwise, the patient reports review of systems is negative or not relevant. PHYSICAL EXAM: Vitals: Temperature 99.2, heart rate 76, blood pressure 109/ 67. General: The patient is a well-nourished male, in no apparent distress, alert and oriented x1 to person only. Neck: Trachea midline. No palpable lymph nodes. Heart: S1, S2. No audible murmurs or rubs. Lungs: Clear to auscultation in all lung montero. Abdomen: Soft, nontender. Bowel sounds in 4 quadrants. Bilateral upper extremities: The patient's range of motion of the shoulder is limited. No bony tenderness to palpation, and 2+ radial pulses palpable. Right lower extremity: The patient's right lower extremity is flexed and internally rotated. He cannot flex the hip without severe pain. He has tenderness along the lateral hip distally. He demonstrates a small amount of dorsiflexion and plantarflexion, but is inhibited because of pain, and 2+ palpable DP pulse. Left lower extremity: He can flex with the hip to 80 degrees distally, positive dorsiflexion and plantarflexion, and 2+ DP pulse bilaterally. He reports he has intact sensation to light touch. DIAGNOSTIC STUDIES/LAB DATA: Labs show white blood cells 12.1, hematocrit 40, platelets 154. INR 1.07. Sodium 140, potassium 3.9, chloride 109, BUN and creatinine 19 and 0.82. Urine is negative. Radiographs: CT scan of the pelvis shows a minimally displaced femoral neck fracture on the right. I have no plain films. ASSESSMENT AND PLAN: Mr. Denney is an 83-year-old gentleman, status post fall with a minimally displaced right femoral neck fracture, which is closed. The patient and I discussed nonoperative and operative treatment options. He is unclear if he wants to proceed with surgery, but is admittedly demented and is only alert and oriented x1. He is in severe pain. My best medical recommendation would be cannulated screws versus hip hemiarthroplasty for the right hip fracture. I will order some plain films to help better decision making preoperatively. I will contact his primary surrogate decision maker his . Myself or Dr. Baires, orthopedic team will be performing the surgery. We would tentatively plan to take him today and he should remain n.p.o. He will be on bedrest with p.r.n. analgesia. Please call with any questions. [id number]/[facility] #: [id number] KOBI
--- NOTE | 2019-03-04 11:03 | PN ---
Subjective Date of Service: 03/04/19 Interval History: Patient seen and examined at bedside. Admitted overnight. Denies pain currently, denies CP, SOB. Is sleepy but arouses to voice and tactile stimuli. States he's tired. Family History: Unchanged from Admission Social History: Unchanged from Admission Past Medical History: Unchanged from Admission Objective Active Medications: Morphine Sulfate (Morphine Inj (Syringe))*) 4 mg IV Q2H PRN PRN Reason: PAIN - SEVERE Last Admin: 03/04/19 09:04 Dose: 4 mg Vital Signs - 8 hr 03/04/19 03/04/19 03/04/19 03:00 03:25 03:29 Temperature 99.6 F 98.0 F Pulse Rate 100 94 Respiratory 20 20 18 Rate Blood Pressure 111/69 129/82 (mmHg) O2 Sat by Pulse 92 96 Oximetry 03/04/19 03/04/19 03/04/19 03:37 04:58 05:02 Temperature Pulse Rate Respiratory 18 18 18 Rate Blood Pressure (mmHg) O2 Sat by Pulse Oximetry 03/04/19 03/04/19 03/04/19 06:00 07:15 08:00 Temperature 99.2 F Pulse Rate 76 Respiratory 16 16 16 Rate Blood Pressure 109/67 (mmHg) O2 Sat by Pulse 92 Oximetry 03/04/19 03/04/19 09:04 10:25 Temperature Pulse Rate Respiratory 18 18 Rate Blood Pressure (mmHg) O2 Sat by Pulse Oximetry Oxygen Devices in Use Now: None Appearance: Elderly male, sitting up in bed, NAD Eyes: No Scleral Icterus, PERRLA Ears/Nose/Mouth/Throat: Clear Oropharnyx, Mucous Membranes Moist Neck: NL Appearance and Movements; NL JVP Respiratory: Symmetrical Chest Expansion and Respiratory Effort, Clear to Auscultation Cardiovascular: NL Sounds; No Murmurs; No JVD, RRR, No Edema Abdominal: NL Sounds; No Tenderness; No Distention Extremities: - - right hip ecchymosis Neurological: NL Sensation, - - drowsy but arousable, oriented to self Lines/Tubes/Other Access: Clean, Dry and Intact Peripheral IV Result Diagrams: 03/04/19 02:11 03/04/19 02:10 Assess/Plan/Problems-Billing Assessment: Mr. Denney is an 83 yo male with a PMH significant for Parkinson's disease, mild dementia, GERd, and BPH who presented to the ED on 03/03 after a mechanical fall and was found to have a subcapital impacted right femoral neck fracture. - Patient Problems (1) Fracture of femoral neck, right Code(s): S72.001A - FRACTURE OF UNSP PART OF NECK OF RIGHT FEMUR, INIT Comment : Appreciate ortho consult - plan for surgical correction later today. Continue with prn analgesia, bedrest, NPO status. (2) Parkinson disease Code(s): G20 - PARKINSON'S DISEASE Comment: Resume home Sinemet when able. (3) Cognitive impairment Code(s): R41.89 - OTH SYMPTOMS AND SIGNS W COGNITIVE FUNCTIONS AND AWARENESS Comment: Resume home rivastigmine when able. Supportive care. Carefully monitor medications and side effects. (4) BPH (benign prostatic hyperplasia) Code(s): N40.0 - BENIGN PROSTATIC HYPERPLASIA WITHOUT LOWER URINRY TRACT SYMP Comment: Resume finasteride when able. (5) GERD (gastroesophageal reflux disease) Code(s): K21.9 - GASTRO-ESOPHAGEAL REFLUX DISEASE WITHOUT ESOPHAGITIS Comment : Diet controlled. Use prn medications if needed. (6) DVT prophylaxis Code(s): ZFW9451 - Comment: Chemoprophylaxis on hold in anticipation of surgery later today. (7) DNR (do not resuscitate) Comment: MOLST updated on admission to allow for intubation during surgery. Status and Disposition: Inpatient admission. Likely will need AKIL.
[2019-03-04] MEDS ORDERED: Famotidine IV* 10 MG/ML 2 ML (20 mg) IV ONE (13:28)
[2019-03-04 17:29] LABS: Urine Appearance Clear; Urine Bilirubin Negative (Negative); Urine Blood 3+ (Negative); Urine Color Yellow; Urine Glucose Negative (Negative); Urine Ketones Trace (Negative); Urine Nitrite Negative (Negative); Urine Protein Negative (Negative); Urine Specific Gravity 1.021 (1.010-1.030); Urine Urobilinogen Negative (Negative)
[2019-03-04 17:33] LABS: Urine Bacteria Absent (Absent); Urine Red Blood Cell 3+(>10/hpf) (Absent); Urine White Blood Cell Trace(0-5/hpf) (Absent)
[2019-03-05 05:34] LABS: ABS Basophils 0.1 10^3/ul (0-0.2); ABS Eosinophils 0.4 10^3/ul (0-0.6); ABS Lymphocytes 0.5 10^3/ul (1.0-4.8); ABS Monocytes 0.7 10^3/ul (0-0.8); ABS Neutrophils 9.3 10^3/ul (1.5-7.7); Eosinophil % 3.3 %; Hematocrit 41 % (42-52); Hemoglobin 13.9 g/dL (14.0-18.0); Lymphocyte % 4.3 %; Mean Corpuscular HGB Conc 34 g/dL (31-36); Mean Corpuscular Hemoglobin 31 pg (27-31); Mean Corpuscular Volume 90 fL (80-94); Mean Platelet Volume 8.7 fL (7.4-10.4); Nucleated Red Blood Cells % 0.1; Platelet Count 141 10^3/uL (150-450); Red Blood Count 4.53 10^6 /uL (4.18-5.48); Red Cell Distribution Width 14 % (10-15)
[2019-03-05 05:52] LABS: BUN/Creatinine Ratio 20.7 (8-20); Calcium 8.8 mg/dL (8.6-10.3); EGFR African American 108.8 (>60); EGFR Non-African American 89.9 (>60); Potassium 3.6 mmol/L (3.5-5.0)
[2019-03-05] MEDS ORDERED: ceFAZolin 2 GM PREMIX in ORs 2 GM/50 ML BAG ONE (07:52)
--- NOTE | 2019-03-05 07:55 | PN ---
Progress Note - Progress Note Date of Service: 03/05/19 SOAP: Subjective: 83 yo M with Parkinson's & dementia after mechanical fall on 03/13/19 with subsequent hip pain. Patient complain of R hip pain. Objective: RLE: - pain with movement R hip Selected Entries 03/05/19 07:26 Temperature 97.8 F Pulse Rate 95 Respiratory 20 Rate Blood Pressure 147/87 (mmHg) O2 Sat by Pulse 97 Oximetry Laboratory Tests 03/05/19 04:54 WBC 11.0 H Hct 41 L Assessment: HD 3 R femoral neck fracture, impacted, without significant displacement Plan: - Spoke with patient's and family yesterday about diagnosis, plan for cannulated screws, risks and potential complications surgical and medical with the fracture and the surgery. - To OR now for cannulated screw fixation R hip femoral neck - Ancef 2gm IV - Patient has been NPO since midnight, optimized by medicine
[2019-03-05] MEDS ORDERED: fentaNYL* 50 MCG/ML 2 ML VIAL (100 MCG VIAL) ONE (08:10)
[2019-03-05] MEDS ORDERED: Midazolam* 1 MG/ML 2 ML VIAL (2 MG) ONE (08:10)
[2019-03-05] MEDS ORDERED: Famotidine IV* 10 MG/ML 2 ML (20 mg) ONE (08:14)
[2019-03-05] MEDS ORDERED: Rocuronium* 10 MG/ML VIAL ONE (08:22)
[2019-03-05] MEDS ORDERED: Propofol* 10 MG/ML 20 ML BTL ONE (08:22)
[2019-03-05] MEDS ORDERED: Lidocaine 2% PF * 5 ML VIAL ONE (08:22)
[2019-03-05] MEDS ORDERED: DiMENhydriNATE IV* 50 MG/ML VIAL IV PUSH PRN (09:00)
[2019-03-05] MEDS ORDERED: Naloxone* 0.4 MG/ML 1 ML VIAL IV PRN (09:00)
[2019-03-05] MEDS ORDERED: fentaNYL* 50 MCG/ML 2 ML VIAL (100 MCG VIAL) IV PRN (09:00)
[2019-03-05] MEDS ORDERED: Ondansetron INJ* 2 MG/ML VIAL IV PRN (09:00)
[2019-03-05] MEDS ORDERED: EPHEDrine (Pressors)* 50 MG/ML VIAL ONE (09:11)
[2019-03-05] MEDS ORDERED: Bupivacaine 0.5% W/EPI SDV* 30 ML VIAL ONE (09:39)
[2019-03-05] MEDS: Lactated Ringers 1000 ML Bag* 1,000 ML IV ONE ×2 (12:00→23:11)
[2019-03-05] MEDS ORDERED: oxyCODONE/Acetamin 5/325 MG* TAB PO PRN ×2 (13:43→13:44)
[2019-03-05] MEDS: ceFAZolin 1 GM* X 3 DOSES POST-OP Q8H (AddVan) IVPB SCH ×2 (16:58)
[2019-03-05] MEDS ORDERED: LEVODOPA PO SCH (18:00)
[2019-03-05] MEDS ORDERED: CARBIDOPA PO SCH (18:00)
--- NOTE | 2019-03-05 18:11 | PN ---
Subjective Date of Service: 03/05/19 Interval History: patient report pain to right hip with movement. Denies chest pain. Does report some shortness of breth at times with movement. Patient is confused to time,but able to reorient. Does have some mild cognitive impairment. No reported fevers. denies abd n/v/d. Family History: Unchanged from Admission Social History: Unchanged from Admission Past Medical History: Unchanged from Admission Objective Active Medications: Acetaminophen (Tylenol Tab*) 650 mg PO Q4H PRN PRN Reason: PAIN - MILD Carbidopa/Levodopa (Carbidopa-Levo Er 25-100 Tab) 1 tab PO TID [facility] Enoxaparin Sodium (Lovenox(*)) 30 mg SUBCUT Q24H [facility] Finasteride (Proscar Tab*) 5 mg PO DAILY [facility] Cefazolin Sodium 1 gm/ Sodium (Chloride) 50 mls @ 200 mls/hr IVPB Q8H [facility] Stop: 03/06/19 08:44 Last Admin: 03/05/19 16:58 Dose: 200 mls/hr Lactated Ringer's (Lactated Ringers 1000 Ml Bag*) 1,000 mls @ 100 mls/hr IV .PER RATE ONE Stop: 03/05/19 23:59 Last Admin: 03/05/19 12:00 Dose: 100 mls/hr Morphine Sulfate (Morphine Inj (Syringe))*) 4 mg IV Q2H PRN PRN Reason: PAIN - SEVERE Last Admin: 03/04/19 09:04 Dose: 4 mg Non-Formulary Medication (Rivastigmine Tartrate [Rivastigmine]) 4.5 mg PO 2100 [facility] Oxycodone/Acetaminophen (Percocet 5/325 Tab*) 1 tab PO Q4H PRN PRN Reason: PAIN - MODERATE Oxycodone/Acetaminophen (Percocet 5/325 Tab*) 2 tab PO Q4H PRN PRN Reason: PAIN - SEVERE Rivastigmine Tartrate (Exelon (Nf)) 3 mg PO DAILY [facility] Vital Signs - 8 hr 03/05/19 03/05/19 03/05/19 10:10 10:15 10:30 Temperature Pulse Rate 86 84 92 Respiratory 15 22 27 Rate Blood Pressure 100/64 96/70 123/72 (mmHg) O2 Sat by Pulse 98 97 98 Oximetry 1203/05/19 03/05/19 10:45 11:15 11:25 Temperature 97.4 F Pulse Rate 89 96 Respiratory 20 16 16 Rate Blood Pressure 113/75 115/58 (mmHg) O2 Sat by Pulse 97 96 Oximetry 03/05/19 03/05/19 03/05/19 12:25 13:11 15:37 Temperature 97.3 F 97.3 F 97.9 F Pulse Rate 94 91 99 Respiratory 19 14 16 Rate Blood Pressure 103/70 130/61 104/66 (mmHg) O2 Sat by Pulse 100 100 97 Oximetry 03/05/19 03/05/19 16:00 17:35 Temperature 98.4 F Pulse Rate 93 Respiratory 15 Rate Blood Pressure 117/72 (mmHg) O2 Sat by Pulse 97 97 Oximetry Oxygen Devices in Use Now: Nasal Cannula Appearance: appears comfortable resting in bed, no acute distress Eyes: No Scleral Icterus Ears/Nose/Mouth/Throat: Clear Oropharnyx, Mucous Membranes Moist Neck: NL Appearance and Movements; NL JVP, Trachea Midline Respiratory: Symmetrical Chest Expansion and Respiratory Effort, Clear to Auscultation Cardiovascular: NL Sounds; No Murmurs; No JVD, No Edema Abdominal: NL Sounds; No Tenderness; No Distention Extremities: No Edema, No Clubbing, Cyanosis, - - dressing intact to right hip Skin: No Rash or Ulcers Neurological: Alert and Oriented x 3 Nutrition: Taking PO's Result Diagrams: 03/06/19 05:56 03/06/19 05:56 Microbiology and Other Data: Microbiology 03/04/19 16:36 Urine Culture - Final Urine No Growth (<1,000 CFU/mL) Assess/Plan/Problems-Billing Assessment: Mr. Denney is an 83 yo male with a PMH significant for Parkinson's disease, mild dementia, GERd, and BPH who presented to the ED on 03/03 after a mechanical fall and was found to have a subcapital impacted right femoral neck fracture. - Patient Problems (1) Fracture of femoral neck, right Current Visit: Yes Status: Acute Code(s): S72.001A - FRACTURE OF UNSP PART OF NECK OF RIGHT FEMUR, INIT SNOMED Code(s): 0311658 Comment: - Management per ortho - Pain medications with bowel regimen - PT/OT (2) Cognitive impairment Current Visit: Yes Status: Chronic Code(s): R41.89 - OTH SYMPTOMS AND SIGNS W COGNITIVE FUNCTIONS AND AWARENESS SNOMED Code(s): 478325603 Comment: - Resume home rivastigmine - Supportive care. (3) Parkinson disease Current Visit: Yes Status: Chronic Code(s): G20 - PARKINSON'S DISEASE SNOMED Code(s): 49905748 Comment: - Resume home Sinemet (4) BPH (benign prostatic hyperplasia) Current Visit: No Status: Chronic Code(s): N40.0 - BENIGN PROSTATIC HYPERPLASIA WITHOUT LOWER URINRY TRACT SYMP SNOMED Code(s): 302927748 Comment: Resume finasteride (5) GERD (gastroesophageal reflux disease) Current Visit: No Status: Chronic Code(s): K21.9 - GASTRO-ESOPHAGEAL REFLUX DISEASE WITHOUT ESOPHAGITIS SNOMED Code(s): 286652999 Comment: - Diet controlled. (6) DVT prophylaxis Current Visit: No Status: Acute Code(s): VJB8975 - SNOMED Code(s): 329353746 Comment: - Lovenox (7) DNR (do not resuscitate) Current Visit: No Status: Acute Comment: MOLST updated on admission to allow for intubation during surgery. Status and Disposition: Inpatient admission. Likely will need AKIL.
[2019-03-05] MEDS ORDERED: Carbidopa/Levodop 25/100 MG TAB(*) ONE (18:35)
[2019-03-05] MEDS: Acetaminophen TAB* 325 MG PO PRN (18:44)
[2019-03-05] MEDS: Carbidopa/Levodop CR 50/200(*) TAB.CR PO SCH (21:44)
[2019-03-05] MEDS: Finasteride TAB* 5 MG PO SCH (21:46)
[2019-03-06] MEDS: ceFAZolin 1 GM* X 3 DOSES POST-OP Q8H (AddVan) IVPB SCH ×4 (00:49→08:05)
--- NOTE | 2019-03-06 02:11 | OP ---
OPERATIVE NOTE: DATE OF OPERATION: 03/05/19 DATE OF : 37 SURGEON: Magnus Baires MD AUXILIARY ENGINEER: BRIGHT Walls A physician multimedia assistant was required for the length of the procedure for assistance with patient positi oning, retraction, and closure. ANESTHESIOLOGIST: Dr. Romario Leonardo. ANESTHESIA: General anesthesia, local anesthesia consisting of Marcaine 0.25% with epinephrine, 20 c c. PRE-OP DIAGNOSIS: Right hip fracture, femoral neck, impacted, nondisplaced. POST-OP DIAGNOSIS: Right hip fracture, femoral neck, impacted, nondisplaced. OPERATIVE PROCEDURE: Cannulated screw fixation, right hip femoral neck fracture. ANTIBIOTICS: Ancef 2 g IV. IV FLUIDS: See Anesthesia note. [id number] TIME: 42 minutes. RADIATION EXPOSURE: C-arm 66.5 seconds for a DAP of 0.90682. SPECIMEN: None. IMPLANTS: Synthes 7.3 mm cannulated screw, partially threaded, short threads. ESTIMATED BLOOD LOSS: Minimal. COMPLICATIONS: None. INDICATIONS FOR PROCEDURE: The patient is an 83-year-old man, with Parkinson's and dementia, who gloria tained a mechanical fall on 03/03/19 and subsequently developed a right hip pain. X-rays and CT scan demonstrated a right femoral neck fracture, impacted. No significant translational displacement pre sent. Maybe the tiniest bit buried perceptible amount of anterior apex angulation. My partner, Dr. Garcia did a consultation on this patient and then asked for me to do the procedure. I met with the patient's and family the day before the procedure, in the afternoon of 03/04/19. I discussed with the family the risks and potential complications of surgery as well as in the posto perative course, including bleeding, infection, nerve or blood vessel injury, blood clot, hip pain, f ailure of fixation, failure of bony healing, full revision surgery, blood clot, pneumonia, bedsores, . The patient was n.p.o. after midnight, optimized by the hospitalist service, and prepared for surgery . DESCRIPTION OF PROCEDURE: The patient's had previously signed a written consent form. I spoke to the family again in preoperative holding and answered several questions. The patient's right hip was marked. The patient was brought back to the operating room, sedated, intubated, and placed on the fracture ta ble. The fracture table was assembled as per routine. Brought large C-arm in. I just made sure I could obtain good AP and lateral x-ray views and I could. We then prepped and draped the right hip. Formal surgical time- out performed. I made a small skin incision along the lateral proximal thigh. Dissected down to iliotibial band. I split the iliotibial band followed by vastus lateralis to get to bone. I placed pin. I spent some time getting especially a good location of my inferior pin starting at or just proximal to the level of the lesser trochanter in as vertically as possible into the inferior aspect of the femoral neck an d head. This was a central inferior pin. I liked that pin position. I then used the bullet guide to place additional pins one posterosuperior and the other one anterosuperior. I took orthogonal x-ray views that showed excellent position of pins. I next measured the pins and d rilled the lateral cortices. I placed the cannulated screws. As the patient's femoral neck fracture was relatively proximal, I ch ose the short threads. I placed all 3 screws. Length was appropriate. Screw threads were all proximal to the fracture site s. Excellent compression with the screws, excellent tightness indicative of high quality bone. I wa s really impressed by that. Final x-ray views obtained. Irrigation: A closure of the vastus lateralis and then the iliotibial band layers with running stitc hes using Ethibond #1 suture. Closure of the subcutaneous tissue with buried simple stitches using V icryl 2-0 suture. Closure of the skin with serge. Local anesthesia injected. Xeroform, 4x4s, ABDs, foam tape. The patient was awakened and extubated and transferred to the PACU. DISPOSITION: The patient was to be readmitted to the hospitalist service postoperatively. The patie nt was to start Lovenox 30 mg subcutaneous daily, on postoperatively day #1 and he will be on that fo r 4 weeks. Pain control. Physical therapy. I told the family that I was going to start him out at toe-touch weightbearing, although I suspected he could tolerate more weight than that given the excel lent compression with his screws and what appeared to be pretty good quality bone. I told the family , however, that he would definitely need an assistive device for at least 6 weeks to prevent full jeremías ghtbearing. The patient will get antibiotics, Ancef, x24 hours postoperatively. The patient will se e me in clinic approximately 2 weeks postoperatively. First dressing change to a current postoperati ve day #3 or sooner if the patient is discharged from the hospital before postoperative day 3. He wi ll need to keep that wound covered until at least postoperative day 7 or until the wound stops draini ng, whichever is further into the future. X-rays obtained in the PACU showed excellent placement of hardware particularly good. [id number]/[facility] #: [id number]
[2019-03-06 06:37] LABS: BUN/Creatinine Ratio 17.6 (8-20); Calcium 8.1 mg/dL (8.6-10.3); EGFR African American 122.5 (>60); EGFR Non-African American 101.3 (>60); Potassium 3.6 mmol/L (3.5-5.0)
[2019-03-06 06:42] LABS: Hematocrit 34 % (42-52); Hemoglobin 11.6 g/dL (14.0-18.0); Mean Platelet Volume 8.8 fL (7.4-10.4); Platelet Count 119 10^3/uL (150-450)
--- NOTE | 2019-03-06 07:47 | PN ---
Subjective Date of Service: 03/06/19 Interval History: Mr. Denney reports that he is feeling fine today. He is not having significant hip pain at rest. He is tolerating oral intake well. He denies chest pain or SOB. Family History: Unchanged from Admission Social History: Unchanged from Admission Past Medical History: Unchanged from Admission Objective Active Medications: Acetaminophen (Tylenol Tab*) 650 mg PO Q4H PRN Carbidopa/Levodopa (Sinemet Cr 50/200(*)) 0.5 tab.cr PO TID IVIS Enoxaparin Sodium (Lovenox(*)) 30 mg SUBCUT Q24H IVIS Finasteride (Proscar Tab*) 5 mg PO 2100 IVIS Cefazolin Sodium 1 gm/ Sodium (Chloride) 50 mls @ 200 mls/hr IVPB Q8H IVIS Morphine Sulfate (Morphine Inj (Syringe))*) 4 mg IV Q2H PRN Oxycodone/Acetaminophen (Percocet 5/325 Tab*) 1 tab PO Q4H PRN Oxycodone/Acetaminophen (Percocet 5/325 Tab*) 2 tab PO Q4H PRN Rivastigmine Tartrate (Exelon (Nf)) 3 mg PO DAILY IVIS Rivastigmine Tartrate (Exelon (Nf)) 4.5 mg PO 2100 IVIS Vital Signs: Temp Pulse Resp BP Pulse Ox 98.1 F 96 15 119/70 93 03/06/19 07:30 03/06/19 07:30 03/06/19 07:36 03/06/19 07:30 03/06/19 07:30 Oxygen Devices in Use Now: None Appearance: Male sitting up in chair in NAD Eyes: No Scleral Icterus Ears/Nose/Mouth/Throat: Mucous Membranes Moist Neck: Trachea Midline Respiratory: Symmetrical Chest Expansion and Respiratory Effort, Clear to Auscultation Cardiovascular: NL Sounds; No Murmurs; No JVD, No Edema Abdominal: NL Sounds; No Tenderness; No Distention Extremities: No Edema Skin: No Rash or Ulcers Neurological: Alert and Oriented x 3, NL Muscle Strength and Tone Nutrition: Taking PO's Result Diagrams: 03/06/19 05:56 03/06/19 05:56 Microbiology and Other Data: . Assess/Plan/Problems-Billing Assessment: Mr. Denney is an 83 yo male with a PMH significant for Parkinson's disease, mild dementia, GERD, and BPH who presented to the ED on 03/03 after a mechanical fall and was found to have a subcapital impacted right femoral neck fracture. - Patient Problems (1) Fracture of femoral neck, right Comment: - Management per ortho - Pain medications with bowel regimen - PT/OT (2) Cognitive impairment Comment: - Resume home rivastigmine - Supportive care. (3) Parkinson disease Comment: - Resume home Sinemet (4) BPH (benign prostatic hyperplasia) Comment: - Resume finasteride (5) DVT prophylaxis Comment: - Lovenox (6) DNR (do not resuscitate) Comment: - MOLST updated on admission to allow for intubation during surgery. Status and Disposition: Inpatient admission. Likely will need AKIL.
[2019-03-06] MEDS: CMCS:Rivastigmine CAP(NF) 1.5 MG CAP PO SCH (08:07)
[2019-03-06] MEDS: Carbidopa/Levodop CR 50/200(*) TAB.CR PO SCH ×3 (08:07→19:42)
[2019-03-06] MEDS: Acetaminophen TAB* 325 MG PO PRN ×2 (08:12→19:41)
[2019-03-06] MEDS ORDERED: Finasteride TAB* 5 MG PO SCH (09:00)
[2019-03-06] MEDS ORDERED: RIVASTIGMINE TARTRATE 4.5 MG PO SCH (09:00)
--- NOTE | 2019-03-06 10:24 | PN ---
Progress Note - Progress Note Date of Service: 03/06/19 Note: POD 1 s/p right hip cannulated screws: Patient doing well resting in joint chair. He has worked with PT and was able to stand. His pain is well controlled. He denies CP, SOB or calf pain. VSS, +DF/PF with intact sensation and 2+ DP pulses. Dressing C/D/I. Continue to work with PT and we will follow.
[2019-03-06] MEDS: Enoxaparin(*) 30 MG/0.3 ML SYR SUBCUT SCH (12:01)
[2019-03-06] MEDS ORDERED: Docusate CAP* 100 MG PO PRN (14:24)
[2019-03-06] MEDS ORDERED: Polyethylene Glycol 3350* 17 GM PACKET PO PRN (14:24)
[2019-03-06] MEDS ORDERED: Bisacodyl SUPP* 10 MG SUPP PR PRN (14:24)
[2019-03-06] MEDS ORDERED: NS 0.9% 1000 ML** 1,000 ML IV SCH (16:00)
[2019-03-06] MEDS: Finasteride TAB* 5 MG PO SCH (19:43)
[2019-03-06] MEDS ORDERED: Senna TAB 8.6 mg* TAB PO SCH (21:00)
[2019-03-07] MEDS: Acetaminophen TAB* 325 MG PO PRN ×2 (03:38→09:14)
[2019-03-07] MEDS: Carbidopa/Levodop CR 50/200(*) TAB.CR PO SCH ×2 (09:13→14:51)
[2019-03-07] MEDS: CMCS:Rivastigmine CAP(NF) 1.5 MG CAP PO SCH (09:14)
--- NOTE | 2019-03-07 09:17 | PN ---
Subjective Date of Service: 03/07/19 Interval History: Pt is feeling ok currently. He denies any pain in the hip. He denies any SOB. He reportedly was calling out this AM. He has been drowsy. Objective Active Medications: Acetaminophen (Tylenol Tab*) 650 mg PO Q4H PRN PRN Reason: PAIN - MILD Last Admin: 03/07/19 03:38 Dose: 650 mg Bisacodyl (Dulcolax Supp*) 10 mg W[place] DAILY PRN PRN Reason: CONSTIPATION Carbidopa/Levodopa (Sinemet Cr 50/200(*)) 0.5 tab.cr PO TID [facility] Last Admin: 03/06/19 19:42 Dose: 0.5 tab.cr Docusate Sodium (Colace Cap*) 100 mg PO DAILY PRN PRN Reason: CONSTIPATION Enoxaparin Sodium (Lovenox(*)) 30 mg SUBCUT Q24H [facility] Last Admin: 03/06/19 12:01 Dose: 30 mg Finasteride (Proscar Tab*) 5 mg PO 2100 [facility] Last Admin: 03/06/19 19:43 Dose: 5 mg Morphine Sulfate (Morphine Inj (Syringe))*) 4 mg IV Q2H PRN PRN Reason: PAIN - SEVERE Last Admin: 03/04/19 09:04 Dose: 4 mg Oxycodone/Acetaminophen (Percocet 5/325 Tab*) 1 tab PO Q4H PRN PRN Reason: PAIN - MODERATE Oxycodone/Acetaminophen (Percocet 5/325 Tab*) 2 tab PO Q4H PRN PRN Reason: PAIN - SEVERE Polyethylene Glycol/Electrolytes (Miralax*) 17 gm PO DAILY PRN PRN Reason: CONSTIPATION Rivastigmine Tartrate (Exelon (Nf)) 3 mg PO DAILY [facility] Last Admin: 03/06/19 08:07 Dose: 3 mg Rivastigmine Tartrate (Exelon (Nf)) 4.5 mg PO 2100 [facility] Last Admin: 03/06/19 19:43 Dose: 4.5 mg Senna (Senokot 8.6 Mg Tab*) 1 tab PO BEDTIME [facility] Last Admin: 03/06/19 19:43 Dose: 1 tab Vital Signs - 8 hr 03/07/19 03/07/19 03/07/19 03:00 03:13 08:02 Temperature 98.5 F 98.2 F Pulse Rate 99 84 Respiratory 16 16 Rate Blood Pressure 124/82 137/82 (mmHg) O2 Sat by Pulse 94 99 Oximetry Oxygen Devices in Use Now: None Appearance: Elderly male sitting up in bed, NAD Eyes: No Scleral Icterus Ears/Nose/Mouth/Throat: Mucous Membranes Moist Respiratory: Symmetrical Chest Expansion and Respiratory Effort, Clear to Auscultation - anteriorly and lateral bases Cardiovascular: NL Sounds; No Murmurs; No JVD, RRR, No Edema Abdominal: NL Sounds; No Tenderness; No Distention Extremities: No Clubbing, Cyanosis Skin: No Nodules or Sclerosis Neurological: - - drowsy, confused Result Diagrams: 03/06/19 05:56 03/06/19 05:56 Microbiology and Other Data: . Assess/Plan/Problems-Billing Mr. Denney is an 83 yo male with a PMHx significant for Parkinson's disease, mild dementia, GERD, and BPH who presented to the ED on 03/03 after a mechanical fall and was found to have a subcapital impacted right femoral neck fracture and is now s/p ORIF. - Patient Problems (1) Fracture of femoral neck, right Current Visit: Yes Status: Acute Code(s): S72.001A - FRACTURE OF UNSP PART OF NECK OF RIGHT FEMUR, INIT SNOMED Code(s): 8560824 Comment: s/p ORIF R hip fracture. Continue prn tylenol. He has not used any narcotics since 03/04. PT/OT ordered. He will need STR on d/c. He is only toe touch weight bearing on the R. (2) Acute blood loss anemia Current Visit: Yes Status: Acute Code(s): D62 - ACUTE POSTHEMORRHAGIC ANEMIA SNOMED Code(s): 556549612 Comment: Pt with mild acute blood loss anemia with mild thrombocytopenia. Follow CBC closely. (3) Cognitive impairment Current Visit: Yes Status: Chronic Code(s): R41.89 - OTH SYMPTOMS AND SIGNS W COGNITIVE FUNCTIONS AND AWARENESS SNOMED Code(s): 355382322 Comment: Continue rivastigmine. Continue supportive care. (4) Parkinson disease Current Visit: Yes Status: Chronic Code(s): G20 - PARKINSON'S DISEASE SNOMED Code(s): 95398008 Comment: Pt is on home dose of sinemet. Monitor for symptoms. (5) BPH (benign prostatic hyperplasia) Current Visit: Yes Status: Chronic Code(s): N40.0 - BENIGN PROSTATIC HYPERPLASIA WITHOUT LOWER URINRY TRACT SYMP SNOMED Code(s): 391662292 Comment: Continue finasteride. (6) DVT prophylaxis Current Visit: Yes Status: Acute Code(s): VWX5796 - SNOMED Code(s): 549245376 Comment: Lovenox (7) DNR (do not resuscitate) Current Visit: Yes Status: Acute Status and Disposition: .
[2019-03-07 11:37] VITALS: BP 115/65
--- NOTE | 2019-03-07 11:54 | PN ---
Progress Note - Progress Note Date of Service: 03/07/19 SOAP: Subjective: screws. Pt states that he is doing well, pain only if there is direct pressure to the lateral hip. Denies CP/SOB, f/c, n/v or calf pain. Objective: Vital Signs: Temp Pulse Resp BP Pulse Ox 97.7 F 90 16 115/65 96 03/07/19 11:36 03/07/19 11:36 03/07/19 11:36 03/07/19 11:36 03/07/19 11:36 Gen: A&Ox3, NAD at rest sitting in chair Right hip: Dressing C/D/I. Thigh soft, NT. + f/e at ankle and MTPs. N/V intact. Calf soft, NT Assessment: POD #2 Right hip ORIF with cannulated screws Plan: PMRU referral placed Cont TTWB Right LE with walker PT/OT while in hospital [facility] for DVT ppx
[2019-03-07] MEDS: Enoxaparin(*) 30 MG/0.3 ML SYR SUBCUT SCH (12:10)
--- NOTE | 2019-03-07 15:33 | DS ---
CC: Kennedy Burkett NP; Dr. Fraire * DISCHARGE SUMMARY: DATE OF ADMISSION: 03/04/19 DATE OF DISCHARGE: 03/07/19 PRIMARY CARE PROVIDER: Kennedy Burkett NP NEUROLOGIST: Dr. Fraire. PRINCIPAL DIAGNOSIS: Right hip fracture, status post ORIF. SECONDARY DIAGNOSIS: 1. Parkinson's disease with early dementia. 2. Benign prostatic hypertrophy. 3. Gastroesophageal reflux disease. HOSPITAL COURSE: The patient presents to the emergency room after a fall with complaints of right hip pain. He was found to have a right subcapital impacted femoral neck fracture. He was seen in consultation by Dr. Garcia on 03/04/19. Dr. Baires took the patient to the operating room on 03/05/19 where he did a cannulated screw fixation to the right hip femoral neck fracture. The patient at this point is toe touch weightbearing. He has been working with Physical Therapy. It is felt that he needs subacute rehab. The patient has been accepted to [facility] [place] for this rehab. During the course of hospitalization, the patient has been intermittently more confused than usual. He, however, recognizes this. He has been maintained on his usual doses of Sinemet and rivastigmine. Additionally, the patient was found to have mild acute blood loss anemia with his hemoglobin going from 13.4 down to 11.6. His platelets also dropped going from 154 to 119. Medically, the patient is stable for discharge to [facility] [place]. I do recommend that he have a CBC on 03/11/19. The patient will be on Lovenox 30 mg subcutaneous daily for DVT prophylaxis for 30 days. The patient will need to follow up with Dr. Roblero in the office in approximately 10 days. Again, he is toe-touch weightbearing. On the day of discharge, the patient is awake. He is alert. He is somewhat confused, but able to be reoriented in no acute distress. Rest of physical exam is as per my progress note dated 03/07/19 at 9:12 a.m. FOLLOWUP CONCERNS: The patient is being discharged to [facility] [place] today, 03/07/19. ACTIVITY: Activity level is as tolerated with toe touch weightbearing on the right. CONDITION ON DISCHARGE: Stable. DIET: Heart healthy. FOLLOWUP: The patient should follow up with Dr. Roblero in approximately 10 days. TIME SPENT: Thirty-five minutes was spent discharging this patient. [id number]/[facility] #: [id number] KOBI
== END 2019-03-07 16:30 | DRG 481 ==
LOC: ED 21:41 → MED 03-04 02:26 → SSU 03-05 12:26
PROVIDERS: ADMIT Internal Medicine; ATTEND Hospitalist
PROC: 0QH604Z Insertion of Internal Fixation Device into Right Upper Femur, Open Approach (ICD-10-PCS; principal; 2019-03-05 08:00)
DX: S72.011A Unspecified intracapsular fracture of right femur, initial encounter for closed fracture (principal); D62 Acute posthemorrhagic anemia; G20 Parkinson's disease; F02.80 Dementia in other diseases classified elsewhere, unspecified severity, without behavioral disturbance, psychotic disturbance, mood disturbance, and anxiety; K21.9 Gastro-esophageal reflux disease without esophagitis; Z66 Do not resuscitate; R33.9 Retention of urine, unspecified; R41.89 Other symptoms and signs involving cognitive functions and awareness; N40.1 Benign prostatic hyperplasia with lower urinary tract symptoms; D69.6 Thrombocytopenia, unspecified; G43.909 Migraine, unspecified, not intractable, without status migrainosus; W18.39XA Other fall on same level, initial encounter; Z88.5 Allergy status to narcotic agent; Z87.891 Personal history of nicotine dependence; Y92.89 Other specified places as the place of occurrence of the external cause
CPT/HCPCS: 36415; 72192; 76000; 80048; 81003; 81015; 85014; 85018; 85025; 85049; 85610; 85730; 87086; 93005; 99285; A9270-GY; C1713; G8978-GP-CL; G8979-GP-CK; J0690; J1650; J2250; J2270; J2405; J2704; J3010

== ENCOUNTER 2020-02-08 13:35 | Inpatient (IN) ==
[2020-02-08 15:01] LABS: ABS Eosinophils 0.3 10^3/ul (0-0.6); ABS Monocytes 0.7 10^3/ul (0-0.8); ABS Neutrophils 7.1 10^3/ul (1.5-7.7); Eosinophil % 3.6 %; Hematocrit 41 % (42-52); Hemoglobin 14.2 g/dL (14.0-18.0); Lymphocyte % 10.4 %; Mean Corpuscular HGB Conc 35 g/dL (31-36); Mean Corpuscular Hemoglobin 31 pg (27-31); Mean Corpuscular Volume 89 fL (80-94); Platelet Count 224 10^3/uL (150-450); Red Blood Count 4.65 10^6 /uL (4.18-5.48); Red Cell Distribution Width 14 % (10-15); White Blood Count 9.1 10^3/uL (3.5-10.8)
[2020-02-08 15:09] LABS: INR 1.19 (0.82-1.09)
[2020-02-08 15:14] LABS: ALT < 3 U/L (7-52); AST 13 U/L (13-39); Albumin 3.4 g/dL (3.2-5.2); Albumin/Globulin Ratio 1.4 (1-3); Alkaline Phosphatase 82 U/L (34-104); Anion Gap 9 mmol/L (2-11); BUN/Creatinine Ratio 16.7 (8-20); Blood Urea Nitrogen 14 mg/dL (6-24); CO2 Carbon Dioxide 26 mmol/L (22-32); Calcium 8.5 mg/dL (8.6-10.3); Chloride 108 mmol/L (101-111); EGFR African American 105.6 (>60); EGFR Non-African American 87.3 (>60); Globulin 2.4 g/dL (2-4); Glucose 80 mg/dL (70-100); Potassium 3.2 mmol/L (3.5-5.0); Sodium 143 mmol/L (135-145); Total Protein 5.8 g/dL (6.4-8.9)
[2020-02-08 15:15] LABS: Troponin I 0.01 ng/mL (<0.03)
[2020-02-08 15:27] LABS: TSH Ultra Thyroid Stim Horm 0.54 mcIU/mL (0.34-5.60)
[2020-02-08] MEDS ORDERED: Potassium Chlor 20 meq TAB.ER PO ONE (15:27)
[2020-02-08] MEDS ORDERED: Enoxaparin 40 MG/0.4 ML SYR SUBCUT SCH (17:00)
[2020-02-08] MEDS ORDERED: NS 0.9% 1000 ml BAG 1,000 ML IV SCH (17:15)
[2020-02-08] MEDS: KCL 20 MEQ/100 ML IVPREMIX 20 MEQ/100 ML BAG IV SCH (22:04)
[2020-02-08] MEDS: Enoxaparin 40 MG/0.4 ML SYR SUBCUT SCH (23:42)
[2020-02-08] MEDS: Carbidopa/Levodop 25/100 MG TAB PO SCH (23:44)
[2020-02-08] MEDS: CMCS:Rivastigmine 1.5 mg CAP (NF) PO SCH (23:44)
[2020-02-09] MEDS: KCL 20 MEQ/100 ML IVPREMIX 20 MEQ/100 ML BAG IV SCH ×2 (01:56→04:34)
[2020-02-09 06:22] LABS: Urine Appearance Turbid; Urine Bilirubin Negative (Negative); Urine Blood 2+ (Negative); Urine Color Amber; Urine Glucose Negative (Negative); Urine Ketones 2+ (Negative); Urine Nitrite Negative (Negative); Urine Protein 2+(100 mg/dL) (Negative); Urine Specific Gravity 1.016 (1.010-1.030); Urine Urobilinogen Negative (Negative)
[2020-02-09 06:25] LABS: Urine Bacteria 1+ (Absent); Urine Red Blood Cell 3+(>10/hpf) (Absent); Urine White Blood Cell 3+(>20/hpf) (Absent)
[2020-02-09 09:13] LABS: ABS Basophils 0.1 10^3/ul (0-0.2); ABS Eosinophils 0.3 10^3/ul (0-0.6); ABS Lymphocytes 0.6 10^3/ul (1.0-4.8); ABS Monocytes 0.7 10^3/ul (0-0.8); ABS Neutrophils 8.5 10^3/ul (1.5-7.7); Eosinophil % 2.5 %; Hematocrit 41 % (42-52); Lymphocyte % 6.3 %; Mean Corpuscular HGB Conc 34 g/dL (31-36); Mean Corpuscular Hemoglobin 30 pg (27-31); Mean Corpuscular Volume 89 fL (80-94); Mean Platelet Volume 7.7 fL (7.4-10.4); Platelet Count 240 10^3/uL (150-450); Red Blood Count 4.62 10^6 /uL (4.18-5.48); Red Cell Distribution Width 14 % (10-15); White Blood Count 10.2 10^3/uL (3.5-10.8)
[2020-02-09 09:53] LABS: BUN/Creatinine Ratio 21.8 (8-20); Calcium 8.2 mg/dL (8.6-10.3); EGFR Non-African American 95.1 (>60); Potassium 3.8 mmol/L (3.5-5.0)
[2020-02-09] MEDS: Carbidopa/Levodop 25/100 MG TAB PO SCH ×2 (10:59→22:03)
[2020-02-09] MEDS: CMCS:Rivastigmine 1.5 mg CAP (NF) PO SCH ×2 (10:59→22:04)
[2020-02-09] MEDS: cefTRIAXone 1 gm/50 mL NS BAG 1 GM/50 ML BAG IVPB SCH (12:19)
[2020-02-09] MEDS ORDERED: Carbidopa/Levodop 25/100 MG TAB PO SCH (21:00)
[2020-02-09] MEDS: Enoxaparin 40 MG/0.4 ML SYR SUBCUT SCH (22:03)
[2020-02-10 06:49] LABS: BUN/Creatinine Ratio 15.6 (8-20); Calcium 8.2 mg/dL (8.6-10.3); EGFR African American 116.7 (>60); EGFR Non-African American 96.5 (>60); Potassium 3.3 mmol/L (3.5-5.0)
[2020-02-10] MEDS: Carbidopa/Levodop 25/100 MG TAB PO SCH ×3 (08:27→22:16)
[2020-02-10] MEDS: CMCS:Rivastigmine 1.5 mg CAP (NF) PO SCH ×2 (08:28→22:16)
[2020-02-10 09:15] LABS: ABS Eosinophils 0.1 10^3/ul (0-0.6); ABS Lymphocytes 0.6 10^3/ul (1.0-4.8); ABS Monocytes 0.6 10^3/ul (0-0.8); ABS Neutrophils 10.4 10^3/ul (1.5-7.7); Eosinophil % 1.1 %; Hematocrit 41 % (42-52); Hemoglobin 13.9 g/dL (14.0-18.0); Lymphocyte % 4.9 %; Mean Corpuscular HGB Conc 34 g/dL (31-36); Mean Corpuscular Hemoglobin 30 pg (27-31); Mean Corpuscular Volume 89 fL (80-94); Mean Platelet Volume 8.1 fL (7.4-10.4); Platelet Count 214 10^3/uL (150-450); Red Blood Count 4.67 10^6 /uL (4.18-5.48); Red Cell Distribution Width 14 % (10-15); White Blood Count 11.8 10^3/uL (3.5-10.8)
[2020-02-10] MEDS ORDERED: Potassium Chlor 20 meq TAB.ER PO ONE (09:53)
[2020-02-10] MEDS ORDERED: Potassium Chloride LIQUID 20 MEQ/15 ML LIQUID PO ONE (11:00)
[2020-02-10] MEDS: cefTRIAXone 1 gm/50 mL NS BAG 1 GM/50 ML BAG IVPB SCH (11:46)
[2020-02-10] MEDS: Enoxaparin 40 MG/0.4 ML SYR SUBCUT SCH (22:16)
[2020-02-11] MEDS: CMCS:Rivastigmine 1.5 mg CAP (NF) PO SCH ×2 (08:59→22:08)
[2020-02-11] MEDS: Carbidopa/Levodop 25/100 MG TAB PO SCH ×3 (09:00→22:08)
[2020-02-11] MEDS: cefTRIAXone 1 gm/50 mL NS BAG 1 GM/50 ML BAG IVPB SCH (12:45)
[2020-02-11] MEDS: Enoxaparin 40 MG/0.4 ML SYR SUBCUT SCH (22:08)
[2020-02-12 06:51] LABS: ABS Basophils 0.1 10^3/ul (0-0.2); ABS Eosinophils 0.3 10^3/ul (0-0.6); ABS Lymphocytes 0.8 10^3/ul (1.0-4.8); ABS Monocytes 0.8 10^3/ul (0-0.8); ABS Neutrophils 12.4 10^3/ul (1.5-7.7); Eosinophil % 1.9 %; Hematocrit 42 % (42-52); Hemoglobin 13.8 g/dL (14.0-18.0); Lymphocyte % 5.5 %; Mean Corpuscular HGB Conc 33 g/dL (31-36); Mean Corpuscular Hemoglobin 30 pg (27-31); Mean Corpuscular Volume 89 fL (80-94); Mean Platelet Volume 8.7 fL (7.4-10.4); Platelet Count 223 10^3/uL (150-450); Red Blood Count 4.69 10^6 /uL (4.18-5.48); Red Cell Distribution Width 14 % (10-15); White Blood Count 14.3 10^3/uL (3.5-10.8)
[2020-02-12 07:09] LABS: BUN/Creatinine Ratio 18.8 (8-20); Calcium 8.4 mg/dL (8.6-10.3); EGFR African American 90.5 (>60); EGFR Non-African American 74.8 (>60); Magnesium 2.2 mg/dL (1.9-2.7); Potassium 3.1 mmol/L (3.5-5.0)
[2020-02-12] MEDS: Carbidopa/Levodop 25/100 MG TAB PO SCH ×3 (08:23→21:21)
[2020-02-12] MEDS: CMCS:Rivastigmine 1.5 mg CAP (NF) PO SCH ×2 (08:24→21:21)
[2020-02-12 10:43] LABS: Urine Appearance Cloudy; Urine Bilirubin Negative (Negative); Urine Blood 2+ (Negative); Urine Color Yellow; Urine Glucose Negative (Negative); Urine Ketones Trace (Negative); Urine Nitrite Negative (Negative); Urine Protein 2+(100 mg/dL) (Negative); Urine Specific Gravity 1.012 (1.010-1.030); Urine Urobilinogen Negative (Negative)
[2020-02-12 10:46] LABS: Urine Bacteria Absent (Absent); Urine Red Blood Cell 3+(>10/hpf) (Absent); Urine White Blood Cell 3+(>20/hpf) (Absent)
[2020-02-12] MEDS: cefTRIAXone 1 gm/50 mL NS BAG 1 GM/50 ML BAG IVPB SCH (12:38)
[2020-02-12] MEDS ORDERED: Potassium Chloride LIQUID 20 MEQ/15 ML LIQUID PO ONE (15:34)
[2020-02-12] MEDS: KCL 20 MEQ/100 ML IVPREMIX 20 MEQ/100 ML BAG IV SCH ×2 (16:22→19:21)
[2020-02-12] MEDS: Enoxaparin 40 MG/0.4 ML SYR SUBCUT SCH (21:21)
[2020-02-13 05:34] LABS: ABS Basophils 0.1 10^3/ul (0-0.2); ABS Eosinophils 0.4 10^3/ul (0-0.6); ABS Monocytes 0.6 10^3/ul (0-0.8); ABS Neutrophils 6.7 10^3/ul (1.5-7.7); Eosinophil % 4.9 %; Hematocrit 39 % (42-52); Hemoglobin 12.9 g/dL (14.0-18.0); Lymphocyte % 11.7 %; Mean Corpuscular HGB Conc 33 g/dL (31-36); Mean Corpuscular Hemoglobin 29 pg (27-31); Mean Corpuscular Volume 89 fL (80-94); Mean Platelet Volume 8.2 fL (7.4-10.4); Platelet Count 218 10^3/uL (150-450); Red Blood Count 4.41 10^6 /uL (4.18-5.48); Red Cell Distribution Width 14 % (10-15); White Blood Count 8.9 10^3/uL (3.5-10.8)
[2020-02-13 05:52] LABS: BUN/Creatinine Ratio 15.5 (8-20); Calcium 8.2 mg/dL (8.6-10.3); EGFR African American 105.6 (>60); EGFR Non-African American 87.3 (>60); Magnesium 2.1 mg/dL (1.9-2.7); Potassium 3.5 mmol/L (3.5-5.0)
[2020-02-13] MEDS ORDERED: Potassium Chlor 20 meq TAB.ER PO SCH (09:00)
[2020-02-13] MEDS: CMCS:Rivastigmine 1.5 mg CAP (NF) PO SCH (09:08)
[2020-02-13] MEDS: Carbidopa/Levodop 25/100 MG TAB PO SCH ×2 (09:09→14:20)
[2020-02-13] MEDS: cefTRIAXone 1 gm/50 mL NS BAG 1 GM/50 ML BAG IVPB SCH (12:24)
[2020-02-13 13:01] VITALS: BP 110/72
== END 2020-02-13 14:30 | DRG 57 ==
LOC: ED 13:35 → MEDTELE 13:35
PROVIDERS: ADMIT Internal Medicine; ATTEND Internal Medicine